=== PATIENT | female | born 1945 | race Caucasian/White ===

== ENCOUNTER 2018-02-01 20:42 | Emergency (ER) | payer MEDICARE, OTHER ==
[~2018-02-01] VITALS: Ht 157.5 cm; Wt 77.2 kg
[~2018-02-01 20:42] MED LIST: ALPRAZOLAM0.5 MG PO; ASA81 MG PO; CEFUROXIME500 MG PO; DOXEPIN PO; DOXYCYCLINE HY100 MG PO; FLUTICASONE PRO16 GM NS; HYDROCODONE PO; K-DUR20 ME1 PO; LANTUS100 UNITS/ SC; LEVAQUIN500 MG PO; MUCINEX DM ER1 EAC1 PO; NORCO 5-325 TA1 EACH PO; NOVOLOG MI100 UNITS/ SC; PREDNISONE20 MG PO; PREDNISONE5 MG PO; PROCARDIA10 MG PO; SYMBICORT 80-46.9 GM INH; TALWIN NX; TRAZODONE HCL50 MG PO; ULTRAM50 MG PO; VENTOLIN HFA18 GM INH; Z.0.ALDACTONE25 MG; Z.0.AMBIEN10 MG; Z.0.JANUVIA100 MG; Z.0.K DUR10 MEQ; Z.0.LASIX40 MG PO; Z.0.LASIX80 MG PO; Z.0.NIFEDICAL XL30 M; Z.0.PRILOSEC20 MG PO; Z.0.TENORMIN25 MG PO; Z.0.TIROSINT75 MCG PO; Z.0.TRIAMTERENE-HC1; Z.0.ZOCOR20 MG PO
[2018-02-01] MEDS ORDERED: HYDROCODONE/APAP 5MG-325MG TAB PO ONE (21:15)
[2018-02-01 22:29] VITALS: BP 168/85
== END 2018-02-01 22:17 | disposition home or self-care (01) ==
LOC: FSED 20:42
DX: S90.122A Contusion of left lesser toe(s) without damage to nail, initial encounter (principal); W22.8XXA Striking against or struck by other objects, initial encounter; Y92.008 Other place in unspecified non-institutional (private) residence as the place of occurrence of the external cause; I10 Essential (primary) hypertension; E11.9 Type 2 diabetes mellitus without complications
CPT/HCPCS: 99283

== ENCOUNTER 2019-05-08 14:54 | Emergency (ER) | payer MEDICARE ==
[~2019-05-08] VITALS: Ht 157.5 cm; Wt 79.4 kg
--- OUTSIDE RECORDS SUMMARY | 2019-05-08 14:58 | XMS REPORT | Summary of Care ---
Author Author [facility] [place] Organization [facility] [place] Address Unknown Phone Unavailable Encounter HQ Tamia(FIN) [id number] Date(s): 01/18/17 - 01/18/17 [facility] [place] [address] [place] [phone] Discharge Disposition: Home or Self Care Attending Physician: Braden James MD Vital Signs No data available for this section Problem List Condition Effective Dates Status Health Status Informant Acute Active gastritis(Confirmed) 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) Diverticulitis(Confi Resolved rmed) DM (diabetes Active mellitus)(Confirmed) Heart Resolved attack(Confirmed) Hypothyroid(Confirme Resolved d) Mitral valve Resolved observation(Confirme d) Allergies, Adverse Reactions, Alerts Substance Reaction Severity Status NKDA Active Medications No data available for this section Results No data available for this section Immunizations No data available for this section Procedures Procedure Date Related Diagnosis Body Site Abdominal hysterectomy1 Cholecystectomy2 Colonoscopy Esophagogastroduodenoscopy3 Excision of lymph node [id number] 3recently and several in the past Social History Social History Type Response Alcohol Past, Frequency: 1-2 times per year. Previous treatment: None. Alcohol use interferes with work or home: No. Smoking Status Former smoker; Type: Cigarettes; Started at age: 38.0; Exposure to Tobacco Smoke None; Cigarette Smoking Last 365 Days No; Reg Smoking Cessation Counseling No Assessment and Plan No data available for this section
--- OUTSIDE RECORDS SUMMARY | 2019-05-08 14:58 | XMS REPORT | Continuity of Care Document ---
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 Problem 01/21/2017 [facility] [place] Diverticulitis (disorder) Resolved Problem 01/21/2017 [facility] [place] Diabetes mellitus (disorder) Active Problem 01/21/2017 [facility] [place] Myocardial infarction (disorder) Resolved Problem 01/21/2017 [facility] [place] Hypothyroidism (disorder) Resolved Problem 01/21/2017 [facility] [place] Mitral valve finding (finding) Resolved Problem 01/21/2017 [facility] [place] Medications No Data Provided for This Section Allergies, Adverse Reactions, Alerts No Known Medication Allergies Immunizations No Data Provided for This Section Results No Data Provided for This Section Pathology Reports No Data Provided for This Section Diagnostic Reports Report Value Date Source Knee wo contrast MRI EXAMINATION: MRI of the left knee without contrast. HISTORY: - S83.242A Other tear of medial meniscus, current injury, left knee, initial encounter; AGE: 71 years GENDER: Female COMPARISON: There are no radiographs available for review. TECHNIQUE: Multiplanar, multisequence magnetic resonance imaging of the left knee is performed with an extremity coil without contrast. FINDINGS: Menisci: Medial: Myxoid degeneration in the posterior horn of the medial meniscus without discrete articular surface contact to suggest tear. Lateral: The anterior horn, body, and posterior horn are intact. Ligaments: The anterior cruciate ligament and posterior cruciate ligament are intact. The medial collateral ligament and lateral collateral ligament complex are intact. Extensor mechanism: The extensor mechanism is intact. Muscles: There is normal signal intensity and muscle bulk of the musculature at the knee. Cartilage: Moderate reactive marrow changes seen in the patellar apex and medial patellar facet. 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 The medial tibiofemoral articular cartilage is intact.. The lateral tibiofemoral articular cartilage is intact.. Bone: There are no acute fractures. There are no suspicious bone marrow replacing lesions. Soft tissues: There is a trace knee joint effusion. There is a trace Winter's cyst IMPRESSION: 1. 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 2. Trace knee joint effusion and Winter's cyst. 01/18/2017 [facility] Knee wo contrast MRI EXAMINATION: MRI of the right knee without contrast. HISTORY: - S83.241A Other tear of medial meniscus, current injury, right knee, initial encounter; AGE: 71 years GENDER: Female COMPARISON: There are no radiographs available for review. TECHNIQUE: Multiplanar, multisequence magnetic resonance imaging of the right knee is performed with an extremity coil without contrast. FINDINGS: Menisci: Medial: Myxoid degeneration the posterior horn of the medial meniscus without articular surface contact to suggest tear. Moderate free edge blunting is noted in the body of the medial meniscus. Lateral: The anterior horn, body, and posterior horn are intact. Ligaments: The anterior cruciate ligament and posterior cruciate ligament are intact. The medial collateral ligament and lateral collateral ligament complex are intact. Extensor mechanism: The extensor mechanism is intact. Muscles: There is normal signal intensity and muscle bulk of the musculature at the knee. Cartilage: Moderate reactive marrow change in the patellar apex and medial patellar facet. Minimal reactive marrow changes seen in the marginal weightbearing medial tibiofemoral compartment. 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 The medial tibiofemoral articular cartilage demonstrates grade 3 chondromalacia with chondral surface irregularity.. The lateral tibiofemoral articular cartilage is intact.. Bone: There are no acute fractures. There are no suspicious bone marrow replacing lesions. Soft tissues: There is no significant knee joint effusion. There is no Winter's cyst. IMPRESSION: 1. 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 2. 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 3. Moderate free edge blunting and myxoid degeneration of the medial meniscus without discrete MR evidence of tear. 01/18/2017 [facility] [place] Consultation Notes No Data Provided for This Section Discharge Summaries No Data Provided for This Section History and Physicals No Data Provided for This Section Vital Signs No Data Provided for This Section Encounters Location Location Details Encounter Type Encounter Number Reason For Visit Attending Provider ADM Date DC Date Status Source [facility] [place] Outpt Diag Services [id number] Braden James 01/18/2017 01/19/2017 [facility] [place] Procedures Procedure Code Date Perfomer Comments Source Abdominal hysterectomy<sup>1</sup> [id number] 1966 [facility] [place] Cholecystectomy<sup>2</sup> [id number] 1974 [facility] [place] Colonoscopy [id number] [facility] [place] Esophagogastroduodenoscopy<sup>3</sup> [id number] recently and several in the past [facility] [place] Excision of lymph node [id number] [facility] [place] Assessment and Plan No Data Provided for This Section Plan of Care No Data Provided for This Section Social History Social History Date Source Social History TypeResponse Alcohol Past, Frequency: 1-2 times per year. Previous treatment: None. Alcohol use interferes with work or home: No. Smoking Status Former smoker; Type: Cigarettes; Started at age: 38.0; Exposure to Tobacco Smoke None; Cigarette Smoking Last 365 Days No; Reg Smoking Cessation Counseling No 01/20/2015 [facility] [place] Family History No Data Provided for This Section Advance Directives No Data Provided for This Section Functional Status No Data Provided for This Section
[2019-05-08] MEDS ORDERED: KETOROLAC TROMETHAMINE 30 MG/ML VIAL IM ONE (15:15)
[2019-05-08] MEDS ORDERED: KETOROLAC TROMETHAMINE 30 MG/ML VIAL ONE (15:38)
--- NOTE | 2019-05-08 15:56 | Diagnostic Imaging Report ---
EXAMINATION: L SPINE 4 OR MORE VIEWS - [facility], PELVIS 1-2 VIEW - [facility] INDICATION: Back pain, trauma COMPARISON: None FINDINGS: AP, lateral and oblique views of the lumbar spine and AP view of the pelvis were obtained. Lumbar spine: No acute fracture. Vertebral body heights are maintained. Alignment is normal. No substantial degenerative change. Atherosclerotic aortic calcifications. Nonobstructive bowel gas pattern. Pelvis: No acute fracture or dislocation. Alignment appears anatomic. IMPRESSION: No acute osseous injury. Signed by: Dami Bray MD on 05/08/2019 3:52 PM
[2019-05-08 17:33] VITALS: BP 156/74
== END 2019-05-08 17:05 | disposition home or self-care (01) ==
LOC: FSED 14:54
DX: M54.5 Low back pain (principal); S33.5XXA Sprain of ligaments of lumbar spine, initial encounter
CPT/HCPCS: 72110; 72170; 96372; 99283; J1885

== ENCOUNTER 2020-11-05 07:45 | Inpatient (IN) | payer MEDICARE ==
[~2020-11-05] VITALS: Ht 157.5 cm; Wt 74.9 kg
[2020-11-05] MEDS ORDERED: ASPIRIN 81 MG CHEW TAB PO ONE (08:00)
[2020-11-05 08:23] LABS: BASOPHILS % 0.5 % (0.0-1.0); EOSINOPHILS # (AUTO) 0.2 (0.0-0.4); HEMATOCRIT 23.8 % (34.2-44.1); HEMOGLOBIN 8.1 g/dL (12.0-16.0); LYMPHOCYTES # (AUTO) 0.8 (1.0-3.2); LYMPHOCYTES % 11.2 % (18.0-39.1); MEAN CORPUSCULAR HEMOGLOBIN 37.7 pg (28-32); MEAN CORPUSCULAR VOLUME 110.7 fL (81-99); MONOCYTES # (AUTO) 0.5 (0.2-0.8); MONOCYTES % 7.1 % (4.4-11.3); NEUTROPHILS # (AUTO) 5.7 (2.1-6.9); NEUTROPHILS % 77.5 % (38.7-80.0); PLATELET COUNT 175 x10e3/uL (140-360); RED BLOOD COUNT 2.15 x10e6/uL (3.6-5.1); RED CELL DISTRIBUTION WIDTH 13.8 % (11.7-14.4)
[2020-11-05 08:38] LABS: ALANINE AMINOTRANSFERASE 9 IU/L (0-55); ALBUMIN 3.9 g/dL (3.5-5.0); ALBUMIN/GLOBULIN RATIO 1.3 (0.8-2.0); ALKALINE PHOSPHATASE 50 IU/L (40-150); ANION GAP 14.2 mmol/L (8-16); BLOOD UREA NITROGEN 14 mg/dL (7-26); BUN/CREATININE RATIO 17 (6-25); CALCIUM 8.7 mg/dL (8.4-10.2); CARBON DIOXIDE 21 mmol/L (22-29); CHLORIDE 107 mmol/L (98-107); CREATINE KINASE 27 IU/L (29-168); CREATININE, SERUM 0.81 mg/dL (0.57-1.11); EST GLOMERULAR FILTRATION RATE > 60 ML/MIN (60-); GLUCOSE 217 mg/dL (74-118); POTASSIUM 4.2 mmol/L (3.5-5.1); SODIUM 138 mmol/L (136-145)
[2020-11-05] MEDS ORDERED: FUROSEMIDE INJ 10 MG/ML 4 ML VIAL IV NR (08:45)
[2020-11-05] MEDS ORDERED: FUROSEMIDE INJ 10 MG/ML 4 ML VIAL IV SCH (09:00)
[2020-11-05 09:50] LABS: OVALOCYTES FEW; PLATELET ESTIMATE ADEQUATE; PLATELET MORPHOLOGY COMMENT NORMAL; RBC MORPHOLOGY COMMENT ABNORMAL
[2020-11-05] MEDS ORDERED: LISINOPRIL 10 MG TAB PO SCH (11:30)
[2020-11-05] MEDS ORDERED: FLUTICASONE PROPIONATE NASAL SPRAY NS PRN (11:30)
[2020-11-05] MEDS ORDERED: HYDRALAZINE HCL 20 MG/ML VIAL IV PRN (11:30)
[2020-11-05] MEDS: INSULIN LISPRO 100 UNIT/1 ML 3ML VIAL SQ SCH ×3 (12:30→20:25)
[2020-11-05 12:42] VITALS: BP 174/51
[2020-11-05 12:49] VITALS: BP 174/51
[2020-11-05 16:00] LABS: CREATINE KINASE 33 IU/L (29-168)
[2020-11-05 16:45] VITALS: BP 182/47
[2020-11-05] MEDS: BUDESONIDE/FORMOTEROL FUMARATE 80/4.5MCG 6.9 GM INH AEROSOL IH SCH ×2 (17:00→19:00)
[2020-11-05 17:30] VITALS: BP 160/54
[2020-11-05 20:00] VITALS: BP 163/44
[2020-11-05 20:15] VITALS: BP 163/44
[2020-11-05] MEDS: TRAZODONE HCL 50 MG TAB PO SCH (20:31)
[2020-11-05 22:29] LABS: CLARITY,URINE CLEAR (CLEAR); COLOR,URINE YELLOW (YELLOW); KETONES,URINE NEGATIVE (NEGATIVE); LEUKOCYTE ESTERASE ,URINE TRACE (NEGATIVE); NITRITE,URINE NEGATIVE (NEGATIVE); PROTEIN,URINE DIPSTICK 2+ (NEGATIVE); URINE UROBILINOGEN 0.2 mg/dL (0.2 - 1)
[2020-11-05 22:42] LABS: BACTERIA,URINE FEW /HPF; EPITHELIAL CELLS,URINE FEW /LPF; RBC,URINE 0-5 /HPF (0-5)
[2020-11-05] MEDS: LISINOPRIL 10 MG TAB PO SCH (23:58)
[2020-11-06] VITALS: BP 160/46
[2020-11-06] MEDS: ONDANSETRON HCL INJ 2MG/ML 2ML 2 MG/ML VIAL IV PRN (03:27)
[2020-11-06 05:59] LABS: BASOPHILS % 0.5 % (0.0-1.0); EOSINOPHILS # (AUTO) 0.1 (0.0-0.4); EOSINOPHILS % 2.3 % (0.0-6.0); LYMPHOCYTES # (AUTO) 0.9 (1.0-3.2); LYMPHOCYTES % 15.1 % (18.0-39.1); MEAN CORPUSCULAR HEMOGLOBIN 37.5 pg (28-32); MEAN CORPUSCULAR HGB CONC 34.2 g/dL (31-35); MEAN CORPUSCULAR VOLUME 109.8 fL (81-99); MONOCYTES # (AUTO) 0.5 (0.2-0.8); NEUTROPHILS # (AUTO) 4.1 (2.1-6.9); NEUTROPHILS % 72.7 % (38.7-80.0); PLATELET COUNT 134 x10e3/uL (140-360); RED BLOOD COUNT 1.84 x10e6/uL (3.6-5.1); RED CELL DISTRIBUTION WIDTH 13.6 % (11.7-14.4)
[2020-11-06] MEDS: LEVOTHYROXINE SODIUM 75 MCG TAB PO SCH (06:00)
[2020-11-06 06:02] LABS: HEMATOCRIT 20.2 % (34.2-44.1); HEMOGLOBIN 6.9 g/dL (12.0-16.0)
[2020-11-06 06:05] LABS: ANION GAP 11.7 mmol/L (8-16); BLOOD UREA NITROGEN 12 mg/dL (7-26); BUN/CREATININE RATIO 16 (6-25); CALCIUM 8.3 mg/dL (8.4-10.2); CARBON DIOXIDE 26 mmol/L (22-29); CHLORIDE 106 mmol/L (98-107); CREATININE, SERUM 0.77 mg/dL (0.57-1.11); EST GLOMERULAR FILTRATION RATE > 60 ML/MIN (60-); GLUCOSE 166 mg/dL (74-118); POTASSIUM 3.7 mmol/L (3.5-5.1); SODIUM 140 mmol/L (136-145)
[2020-11-06] MEDS ORDERED: SODIUM CHLORIDE 0.9% 250ML 250 ML IV ONE (06:15)
[2020-11-06] MEDS: BUDESONIDE/FORMOTEROL FUMARATE 80/4.5MCG 6.9 GM INH AEROSOL IH SCH ×2 (07:00→19:45)
[2020-11-06] MEDS: INSULIN LISPRO 100 UNIT/1 ML 3ML VIAL SQ SCH ×4 (07:30→21:21)
[2020-11-06 07:54] VITALS: BP 160/46
[2020-11-06 08:23] VITALS: BP 191/51
[2020-11-06] MEDS ORDERED: NON-FORMULARY MEDICATION (Levothyroxine Sodium (Tirosint) 75 MCG) PO SCH (09:00)
[2020-11-06] MEDS: LISINOPRIL 10 MG TAB PO SCH ×2 (09:52→20:30)
[2020-11-06] MEDS ORDERED: IOPAMIDOL 370 MG/ML 200 ML INFUS..BTL INJ ONE (10:10)
[2020-11-06] MEDS ORDERED: SODIUM CHLORIDE 0.9% 50ML 50 ML ONE (10:10)
[2020-11-06] MEDS ORDERED: CEFTRIAXONE SOD 1 GM/50 ML BAG IV SCH (10:15)
[2020-11-06 11:44] VITALS: BP 182/56
[2020-11-06] MEDS: NIFEDIPINE CR 30 MG TAB PO SCH (12:10)
[2020-11-06] MEDS: AZITHROMYCIN 250 MG TAB PO SCH (12:11)
[2020-11-06] MEDS: CEFTRIAXONE SOD 1 GM in SODIUM CHLORIDE 0.9% 50ML 50 ML IV SCH (12:13)
[2020-11-06 12:24] LABS: ANISOCYTOSIS SLIGHT; PLATELET ESTIMATE SLIGHTLY DECREASED; POIKILOCYTOSIS SLIGHT; RBC MORPHOLOGY COMMENT ABNORMAL
[2020-11-06] MEDS ORDERED: SODIUM CHLORIDE 0.9% 250ML 250 ML ONE ×2 (12:24→13:24)
[2020-11-06 12:25] LABS: PLATELET MORPHOLOGY COMMENT NORMAL
[2020-11-06] MEDS ORDERED: METOPROLOL TART50 MG PO (13:13)
[2020-11-06 13:31] LABS: HYPOCHROMASIA SLIGHT
[2020-11-06] MEDS ORDERED: FUROSEMIDE INJ 10 MG/ML 2 ML VIAL IV ONE ×2 (15:00→19:45)
[2020-11-06] MEDS: METOPROLOL TARTRATE 50 MG TAB PO SCH (19:38)
[2020-11-06] MEDS: ACETAMINOPHEN 325 MG TAB PO PRN (19:47)
[2020-11-06 20:00] VITALS: BP 137/49
[2020-11-06] MEDS: TRAZODONE HCL 50 MG TAB PO SCH (20:30)
[2020-11-06] MEDS: SIMVASTATIN 20 MG TAB PO SCH (20:31)
[2020-11-06] MEDS ORDERED: SIMVASTATIN 20 MG TAB PO SCH (21:00)
[2020-11-07] VITALS (8 sets, daily range): BP systolic 116–156; BP diastolic 48–56
[2020-11-07] MEDS: LEVOTHYROXINE SODIUM 75 MCG TAB PO SCH (05:05)
[2020-11-07 06:25] LABS: BASOPHILS # (AUTO) 0.1 (0.0-0.1); BASOPHILS % 0.8 % (0.0-1.0); EOSINOPHILS # (AUTO) 0.5 (0.0-0.4); EOSINOPHILS % 7.5 % (0.0-6.0); HEMATOCRIT 24.1 % (34.2-44.1); HEMOGLOBIN 8.2 g/dL (12.0-16.0); LYMPHOCYTES # (AUTO) 0.8 (1.0-3.2); LYMPHOCYTES % 13.1 % (18.0-39.1); MEAN CORPUSCULAR HEMOGLOBIN 36.8 pg (28-32); MEAN CORPUSCULAR VOLUME 108.1 fL (81-99); MONOCYTES # (AUTO) 0.6 (0.2-0.8); MONOCYTES % 9.4 % (4.4-11.3); NEUTROPHILS # (AUTO) 4.4 (2.1-6.9); NEUTROPHILS % 68.6 % (38.7-80.0); PLATELET COUNT 150 x10e3/uL (140-360); RED BLOOD COUNT 2.23 x10e6/uL (3.6-5.1); RED CELL DISTRIBUTION WIDTH 16.9 % (11.7-14.4)
[2020-11-07 06:48] LABS: ANION GAP 13.5 mmol/L (8-16); CALCIUM 8.1 mg/dL (8.4-10.2); CREATININE, SERUM 0.96 mg/dL (0.57-1.11); POTASSIUM 3.5 mmol/L (3.5-5.1)
[2020-11-07] MEDS: BUDESONIDE/FORMOTEROL FUMARATE 80/4.5MCG 6.9 GM INH AEROSOL IH SCH ×2 (07:10→20:36)
[2020-11-07] MEDS: METOPROLOL TARTRATE 50 MG TAB PO SCH ×2 (09:25→17:44)
[2020-11-07] MEDS: LISINOPRIL 10 MG TAB PO SCH ×2 (09:25→21:00)
[2020-11-07] MEDS: AZITHROMYCIN 250 MG TAB PO SCH (09:26)
[2020-11-07] MEDS: NIFEDIPINE CR 30 MG TAB PO SCH (09:26)
[2020-11-07] MEDS: INSULIN LISPRO 100 UNIT/1 ML 3ML VIAL SQ SCH ×4 (09:28→21:00)
[2020-11-07] MEDS ORDERED: FUROSEMIDE INJ 10 MG/ML 4 ML VIAL IV ONE (10:30)
[2020-11-07] MEDS ORDERED: METOLAZONE 5 MG TAB PO ONE (10:30)
[2020-11-07] MEDS: CEFTRIAXONE SOD 1 GM in SODIUM CHLORIDE 0.9% 50ML 50 ML IV SCH (12:30)
[2020-11-07] MEDS: CHOLESTYRAMINE 4 GM PACKET PO SCH (12:32)
[2020-11-07] MEDS: ACETAMINOPHEN 325 MG TAB PO PRN (12:33)
[2020-11-07] MEDS: TRAZODONE HCL 50 MG TAB PO SCH (21:57)
[2020-11-07] MEDS: SIMVASTATIN 20 MG TAB PO SCH (21:58)
[2020-11-08 01:33] VITALS: BP 103/39
[2020-11-08 05:25] VITALS: BP 151/52
[2020-11-08 05:38] LABS: BASOPHILS # (AUTO) 0.1 (0.0-0.1); BASOPHILS % 0.9 % (0.0-1.0); EOSINOPHILS # (AUTO) 0.5 (0.0-0.4); EOSINOPHILS % 7.7 % (0.0-6.0); HEMATOCRIT 24.7 % (34.2-44.1); HEMOGLOBIN 8.7 g/dL (12.0-16.0); LYMPHOCYTES # (AUTO) 1.3 (1.0-3.2); LYMPHOCYTES % 18.1 % (18.0-39.1); MEAN CORPUSCULAR HEMOGLOBIN 37.7 pg (28-32); MEAN CORPUSCULAR HGB CONC 35.2 g/dL (31-35); MEAN CORPUSCULAR VOLUME 106.9 fL (81-99); MONOCYTES # (AUTO) 0.6 (0.2-0.8); MONOCYTES % 9.1 % (4.4-11.3); NEUTROPHILS # (AUTO) 4.5 (2.1-6.9); NEUTROPHILS % 63.6 % (38.7-80.0); PLATELET COUNT 155 x10e3/uL (140-360); RED BLOOD COUNT 2.31 x10e6/uL (3.6-5.1); RED CELL DISTRIBUTION WIDTH 16.7 % (11.7-14.4)
[2020-11-08] MEDS: LEVOTHYROXINE SODIUM 75 MCG TAB PO SCH (05:51)
[2020-11-08 06:12] LABS: ALBUMIN 3.5 g/dL (3.5-5.0); ALBUMIN/GLOBULIN RATIO 1.3 (0.8-2.0); ANION GAP 15.6 mmol/L (8-16); CALCIUM 8.1 mg/dL (8.4-10.2); CREATININE, SERUM 0.98 mg/dL (0.57-1.11); POTASSIUM 3.6 mmol/L (3.5-5.1)
[2020-11-08] MEDS: BUDESONIDE/FORMOTEROL FUMARATE 80/4.5MCG 6.9 GM INH AEROSOL IH SCH (07:00)
[2020-11-08] MEDS: INSULIN LISPRO 100 UNIT/1 ML 3ML VIAL SQ SCH ×3 (07:30→15:53)
[2020-11-08 07:42] VITALS: BP 162/60
[2020-11-08 08:41] VITALS: BP 162/60
[2020-11-08] MEDS: LISINOPRIL 10 MG TAB PO SCH (09:00)
[2020-11-08] MEDS: AZITHROMYCIN 250 MG TAB PO SCH (09:00)
[2020-11-08] MEDS: NIFEDIPINE CR 30 MG TAB PO SCH (09:00)
[2020-11-08] MEDS: METOPROLOL TARTRATE 50 MG TAB PO SCH ×2 (09:00→15:53)
[2020-11-08] MEDS: CHOLESTYRAMINE 4 GM PACKET PO SCH (09:00)
[2020-11-08] MEDS: ONDANSETRON HCL INJ 2MG/ML 2ML 2 MG/ML VIAL IV PRN (09:40)
[2020-11-08] MEDS: CEFTRIAXONE SOD 1 GM in SODIUM CHLORIDE 0.9% 50ML 50 ML IV SCH (11:00)
[2020-11-08] MEDS ORDERED: MAGNESIUM SULFATE 2GM/50ML 50 ML IV ONE (11:15)
[2020-11-08 11:33] VITALS: BP 151/50
[2020-11-08] MEDS ORDERED: FUROSEMIDE40 MG PO (15:13)
[2020-11-08 15:44] VITALS: BP 148/60
[2020-11-08] MEDS ORDERED: ONDANSETRON HCL 4 MG ORAL DISINTEGRATING TAB PO PRN (15:45)
[2020-11-09] MEDS ORDERED: FUROSEMIDE 40 MG TAB PO SCH (09:00)
== END 2020-11-08 15:55 | disposition home or self-care (01) | DRG 292 ==
LOC: ER 07:49 → ERHOLD 08:57 → MED/SURG2 11:29 → OBSVTOIN 11-06 12:55 → INTOOBSV 11-06 12:55
PROVIDERS: ADMIT Internal Medicine; ATTEND Internal Medicine
PROC: 30233N1 Transfusion of Nonautologous Red Blood Cells into Peripheral Vein, Percutaneous Approach (ICD-10-PCS; principal; 2020-11-06)
DX: I11.0 Hypertensive heart disease with heart failure (principal); C94.6 Myelodysplastic disease, not elsewhere classified; I16.9 Hypertensive crisis, unspecified; R06.03 Acute respiratory distress; I50.33 Acute on chronic diastolic (congestive) heart failure; I27.20 Pulmonary hypertension, unspecified; E11.9 Type 2 diabetes mellitus without complications; D50.0 Iron deficiency anemia secondary to blood loss (chronic); E78.00 Pure hypercholesterolemia, unspecified; E03.9 Hypothyroidism, unspecified; J44.9 Chronic obstructive pulmonary disease, unspecified; J47.9 Bronchiectasis, uncomplicated; Z87.891 Personal history of nicotine dependence
CPT/HCPCS: 36415; 71045; 71260; 74018; 80048; 80053; 81001; 82550; 82553; 82607; 82746; 82948; 83735; 83880; 84443; 84484; 85025; 86850; 86900; 86920; 93005; 93306; 94664; 99284; G0378; J0360; J0696; J1940; J2405; J3475; J7050; P9016; Q9967; U0002

== ENCOUNTER 2021-08-09 21:45 | Inpatient (IN) | payer MEDICARE ==
[~2021-08-09] VITALS: Ht 157.5 cm; Wt 74.8 kg
[~2021-08-09 21:45] MED LIST changes: +FUROSEMIDE40 MG PO; +METOPROLOL TART50 MG PO
[2021-08-09] MEDS ORDERED: FUROSEMIDE INJ 10 MG/ML 4 ML VIAL IV ONE (22:00)
[2021-08-10 00:31] LABS: ALBUMIN 3.5 g/dL (3.5-5.0); ALBUMIN/GLOBULIN RATIO 1.6 (0.8-2.0); ANION GAP 14.6 mmol/L (8-16); CALCIUM 8.4 mg/dL (8.4-10.2); CREATININE, SERUM 0.9 mg/dL (0.57-1.11); POTASSIUM 3.6 mmol/L (3.5-5.1)
[2021-08-10 01:00] LABS: BASOPHILS % 0.5 % (0.0-1.0); EOSINOPHILS # (AUTO) 0.2 (0.0-0.4); EOSINOPHILS % 2.2 % (0.0-6.0); LYMPHOCYTES # (AUTO) 1.1 (1.0-3.2); LYMPHOCYTES % 15.4 % (18.0-39.1); MEAN CORPUSCULAR HEMOGLOBIN 38.4 pg (28-32); MEAN CORPUSCULAR HGB CONC 33.3 g/dL (31-35); MEAN CORPUSCULAR VOLUME 115.3 fL (81-99); MONOCYTES # (AUTO) 0.6 (0.2-0.8); MONOCYTES % 8.2 % (4.4-11.3); NEUTROPHILS # (AUTO) 5.4 (2.1-6.9); PLATELET COUNT 149 x10e3/uL (140-360); RED BLOOD COUNT 1.77 x10e6/uL (3.6-5.1); RED CELL DISTRIBUTION WIDTH 14.6 % (11.7-14.4)
[2021-08-10 01:02] LABS: HEMATOCRIT 20.4 % (34.2-44.1); HEMOGLOBIN 6.8 g/dL (12.0-16.0)
[2021-08-10] MEDS ORDERED: SODIUM CHLORIDE 0.9% 250ML 250 ML IV ONE (01:15)
[2021-08-10 02:51] LABS: CLARITY,URINE SL CLOUDY (CLEAR); COLOR,URINE YELLOW (YELLOW); KETONES,URINE NEGATIVE (NEGATIVE); LEUKOCYTE ESTERASE ,URINE TRACE (NEGATIVE); NITRITE,URINE NEGATIVE (NEGATIVE); PROTEIN,URINE DIPSTICK NEGATIVE (NEGATIVE); URINE UROBILINOGEN 0.2 mg/dL (0.2 - 1)
[2021-08-10 02:57] LABS: BACTERIA,URINE FEW /HPF; EPITHELIAL CELLS,URINE FEW /LPF; RBC,URINE 0-5 /HPF (0-5)
[2021-08-10] MEDS ORDERED: SODIUM CHLORIDE 0.9% 250ML 250 ML ONE (04:18)
[2021-08-10] MEDS ORDERED: FLUTICASONE PROPIONATE NASAL SPRAY NS PRN (12:45)
[2021-08-10] MEDS ORDERED: DEXTROSE 50% SYRINGE 50 ML IV PRN (12:45)
[2021-08-10] MEDS ORDERED: ONDANSETRON HCL INJ 2MG/ML 2ML 2 MG/ML VIAL IV PRN (12:45)
[2021-08-10] MEDS: FUROSEMIDE INJ 10 MG/ML 4 ML VIAL IV SCH ×2 (14:02→22:11)
[2021-08-10] MEDS: ACETAMINOPHEN 325 MG TAB PO PRN (14:15)
[2021-08-10] MEDS: INSULIN REGULAR, HUMAN 100 UNIT/1 ML SQ SCH ×2 (16:38→21:00)
[2021-08-10] MEDS: METOPROLOL TARTRATE 50 MG TAB PO SCH (16:55)
[2021-08-10] MEDS ORDERED: BASAGLAR K100 UNIT/1 SC (18:47)
[2021-08-10] MEDS ORDERED: CYMBALTA20 MG PO (18:47)
[2021-08-10] MEDS ORDERED: LISINOPRIL20 MG PO (18:47)
[2021-08-10] MEDS ORDERED: NOVOLOG100 UNIT/1 SC ×3 (18:47)
[2021-08-10] MEDS ORDERED: LORATADINE10 MG PO (18:47)
[2021-08-10] MEDS ORDERED: TYLENOL325 MG PO (18:47)
[2021-08-10] MEDS ORDERED: NIFEDIPINE ER30 M1 PO (18:47)
[2021-08-10] MEDS ORDERED: QUESTRAN PACKET4 GM PO (18:47)
[2021-08-10] MEDS ORDERED: PROAIR HFA INH8.5 GM INH (18:47)
[2021-08-10] MEDS ORDERED: OMEPRAZOLE40 MG PO (18:47)
[2021-08-10] MEDS: BUDESONIDE/FORMOTEROL FUMARATE 80/4.5MCG 6.9 GM INH AEROSOL IH SCH (19:00)
[2021-08-10] MEDS: ALBUTEROL/IPRATROPIUM 3 ML NEB NEB SCH (19:55)
[2021-08-10 20:00] VITALS: BP 204/62
[2021-08-10] MEDS: SILENOR 6 MG PO SCH (21:00)
[2021-08-10 22:00] VITALS: BP 165/50
[2021-08-10] MEDS: TRAZODONE HCL 50 MG TAB PO SCH (22:11)
[2021-08-11] VITALS (8 sets, daily range): BP systolic 149–193; BP diastolic 43–56
[2021-08-11] MEDS: ALBUTEROL/IPRATROPIUM 3 ML NEB NEB SCH ×8 (04:05→23:20)
[2021-08-11] MEDS: LEVOTHYROXINE SODIUM 75 MCG TAB PO SCH (05:55)
[2021-08-11 06:17] LABS: BASOPHILS % 0.7 % (0.0-1.0); EOSINOPHILS # (AUTO) 0.2 (0.0-0.4); EOSINOPHILS % 4.1 % (0.0-6.0); HEMATOCRIT 28.6 % (34.2-44.1); HEMOGLOBIN 9.2 g/dL (12.0-16.0); LYMPHOCYTES % 18.8 % (18.0-39.1); MEAN CORPUSCULAR HEMOGLOBIN 34.6 pg (28-32); MEAN CORPUSCULAR HGB CONC 32.2 g/dL (31-35); MEAN CORPUSCULAR VOLUME 107.5 fL (81-99); MONOCYTES # (AUTO) 0.5 (0.2-0.8); MONOCYTES % 8.9 % (4.4-11.3); NEUTROPHILS # (AUTO) 3.6 (2.1-6.9); NEUTROPHILS % 67.1 % (38.7-80.0); PLATELET COUNT 114 x10e3/uL (140-360); RED BLOOD COUNT 2.66 x10e6/uL (3.6-5.1); RED CELL DISTRIBUTION WIDTH 22.2 % (11.7-14.4)
[2021-08-11 06:50] LABS: ANION GAP 16.3 mmol/L (8-16); CALCIUM 8.5 mg/dL (8.4-10.2); CREATININE, SERUM 0.92 mg/dL (0.57-1.11); POTASSIUM 3.3 mmol/L (3.5-5.1)
[2021-08-11] MEDS: BUDESONIDE/FORMOTEROL FUMARATE 80/4.5MCG 6.9 GM INH AEROSOL IH SCH ×3 (07:00→19:50)
[2021-08-11] MEDS: INSULIN REGULAR, HUMAN 100 UNIT/1 ML SQ SCH ×4 (08:37→20:53)
[2021-08-11] MEDS: FUROSEMIDE INJ 10 MG/ML 4 ML VIAL IV SCH ×2 (08:37→20:57)
[2021-08-11] MEDS: METOPROLOL TARTRATE 50 MG TAB PO SCH ×2 (08:39→18:06)
[2021-08-11] MEDS ORDERED: NIFEDIPINE 10 MG CAP PO SCH (09:00)
[2021-08-11] MEDS ORDERED: POTASSIUM CHLORIDE 20 MEQ TAB CR PO ONE (11:15)
[2021-08-11] MEDS: NIFEDIPINE 10 MG CAP PO SCH ×2 (14:48→20:51)
[2021-08-11] MEDS: ACETAMINOPHEN 325 MG TAB PO PRN (19:28)
[2021-08-11] MEDS: SIMVASTATIN 20 MG TAB PO SCH (20:57)
[2021-08-11] MEDS: TRAZODONE HCL 50 MG TAB PO SCH (20:57)
[2021-08-11] MEDS: SILENOR 6 MG PO SCH (21:00)
[2021-08-12] VITALS (8 sets, daily range): BP systolic 137–186; BP diastolic 40–78
[2021-08-12] MEDS: ALBUTEROL/IPRATROPIUM 3 ML NEB NEB SCH ×6 (03:30→23:00)
[2021-08-12] MEDS: LEVOTHYROXINE SODIUM 75 MCG TAB PO SCH (04:56)
[2021-08-12 05:07] LABS: BASOPHILS % 0.6 % (0.0-1.0); EOSINOPHILS # (AUTO) 0.3 (0.0-0.4); EOSINOPHILS % 6.4 % (0.0-6.0); HEMATOCRIT 24.4 % (34.2-44.1); LYMPHOCYTES # (AUTO) 1.1 (1.0-3.2); LYMPHOCYTES % 21.5 % (18.0-39.1); MEAN CORPUSCULAR HEMOGLOBIN 34.6 pg (28-32); MEAN CORPUSCULAR HGB CONC 32.8 g/dL (31-35); MEAN CORPUSCULAR VOLUME 105.6 fL (81-99); MONOCYTES # (AUTO) 0.4 (0.2-0.8); MONOCYTES % 7.9 % (4.4-11.3); NEUTROPHILS # (AUTO) 3.3 (2.1-6.9); NEUTROPHILS % 63.2 % (38.7-80.0); PLATELET COUNT 112 x10e3/uL (140-360); RED BLOOD COUNT 2.31 x10e6/uL (3.6-5.1); RED CELL DISTRIBUTION WIDTH 21.2 % (11.7-14.4)
[2021-08-12 05:30] LABS: ANION GAP 14.1 mmol/L (8-16); CALCIUM 7.9 mg/dL (8.4-10.2); CREATININE, SERUM 0.98 mg/dL (0.57-1.11); MAGNESIUM 1.6 MG/DL (1.3-2.1); POTASSIUM 4.1 mmol/L (3.5-5.1)
[2021-08-12] MEDS: BUDESONIDE/FORMOTEROL FUMARATE 80/4.5MCG 6.9 GM INH AEROSOL IH SCH ×2 (07:15→18:45)
[2021-08-12] MEDS: INSULIN REGULAR, HUMAN 100 UNIT/1 ML SQ SCH ×4 (07:30→19:50)
[2021-08-12] MEDS: CLONIDINE HCL 0.1 MG TAB PO PRN ×2 (08:05→15:44)
[2021-08-12] MEDS: METOPROLOL TARTRATE 50 MG TAB PO SCH ×2 (09:00→16:34)
[2021-08-12] MEDS: NIFEDIPINE 10 MG CAP PO SCH (09:00)
[2021-08-12] MEDS: FUROSEMIDE INJ 10 MG/ML 4 ML VIAL IV SCH ×2 (09:10→19:59)
[2021-08-12] MEDS: NIFEDIPINE CR 30 MG TAB PO SCH (11:58)
[2021-08-12] MEDS ORDERED: ONDANSETRON HCL 4 MG ORAL DISINTEGRATING TAB PO PRN (17:30)
[2021-08-12] MEDS: TRAZODONE HCL 50 MG TAB PO SCH (19:59)
[2021-08-12] MEDS: SIMVASTATIN 20 MG TAB PO SCH (19:59)
[2021-08-12] MEDS: SILENOR 6 MG PO SCH (20:01)
[2021-08-13 00:20] VITALS: BP 152/49
[2021-08-13] MEDS: ALBUTEROL/IPRATROPIUM 3 ML NEB NEB SCH ×4 (03:00→15:18)
[2021-08-13 04:20] VITALS: BP 142/56
[2021-08-13] MEDS: LEVOTHYROXINE SODIUM 75 MCG TAB PO SCH (05:25)
[2021-08-13] MEDS: BUDESONIDE/FORMOTEROL FUMARATE 80/4.5MCG 6.9 GM INH AEROSOL IH SCH (07:15)
[2021-08-13 07:23] LABS: BASOPHILS % 0.4 % (0.0-1.0); EOSINOPHILS # (AUTO) 0.3 (0.0-0.4); EOSINOPHILS % 7.1 % (0.0-6.0); HEMOGLOBIN 8.3 g/dL (12.0-16.0); LYMPHOCYTES # (AUTO) 0.9 (1.0-3.2); LYMPHOCYTES % 18.7 % (18.0-39.1); MEAN CORPUSCULAR HEMOGLOBIN 34.9 pg (28-32); MEAN CORPUSCULAR HGB CONC 33.2 g/dL (31-35); MONOCYTES # (AUTO) 0.4 (0.2-0.8); MONOCYTES % 7.7 % (4.4-11.3); NEUTROPHILS # (AUTO) 3.2 (2.1-6.9); NEUTROPHILS % 65.9 % (38.7-80.0); PLATELET COUNT 118 x10e3/uL (140-360); RED BLOOD COUNT 2.38 x10e6/uL (3.6-5.1)
[2021-08-13] MEDS: INSULIN REGULAR, HUMAN 100 UNIT/1 ML SQ SCH ×2 (07:30→11:30)
[2021-08-13 07:39] VITALS: BP 144/51
[2021-08-13 07:42] LABS: ANION GAP 16.6 mmol/L (8-16); CALCIUM 8.5 mg/dL (8.4-10.2); CREATININE, SERUM 0.88 mg/dL (0.57-1.11); POTASSIUM 4.6 mmol/L (3.5-5.1)
[2021-08-13 08:03] VITALS: BP 144/51
[2021-08-13] MEDS ORDERED: FUROSEMIDE 40 MG TAB PO SCH (09:00)
[2021-08-13] MEDS: FUROSEMIDE INJ 10 MG/ML 4 ML VIAL IV SCH (09:35)
[2021-08-13] MEDS: METOPROLOL TARTRATE 50 MG TAB PO SCH (09:35)
[2021-08-13] MEDS: NIFEDIPINE CR 30 MG TAB PO SCH (09:36)
[2021-08-13] MEDS: ACETAMINOPHEN 325 MG TAB PO PRN ×2 (09:40→14:18)
[2021-08-13 11:32] VITALS: BP 135/47
[2021-08-13 15:46] VITALS: BP 138/48
[2021-08-14] MEDS ORDERED: FUROSEMIDE 40 MG TAB PO SCH (09:00)
== END 2021-08-13 17:15 | disposition home or self-care (01) | DRG 291 ==
LOC: ER 21:56 → ERHOLD 08-10 01:37 → MED/SURG2 08-10 18:20
PROVIDERS: ADMIT Internal Medicine; ATTEND Internal Medicine
PROC: 30233N1 Transfusion of Nonautologous Red Blood Cells into Peripheral Vein, Percutaneous Approach (ICD-10-PCS; principal; 2021-08-10)
DX: I13.0 Hypertensive heart and chronic kidney disease with heart failure and stage 1 through stage 4 chronic kidney disease, or unspecified chronic kidney disease (principal); I50.33 Acute on chronic diastolic (congestive) heart failure; J96.21 Acute and chronic respiratory failure with hypoxia; E03.9 Hypothyroidism, unspecified; E78.5 Hyperlipidemia, unspecified; E11.22 Type 2 diabetes mellitus with diabetic chronic kidney disease; N18.9 Chronic kidney disease, unspecified; Z82.49 Family history of ischemic heart disease and other diseases of the circulatory system; D46.9 Myelodysplastic syndrome, unspecified; D63.8 Anemia in other chronic diseases classified elsewhere; I16.0 Hypertensive urgency; E11.65 Type 2 diabetes mellitus with hyperglycemia; J44.9 Chronic obstructive pulmonary disease, unspecified; Z20.822 Contact with and (suspected) exposure to COVID-19; Z79.4 Long term (current) use of insulin
CPT/HCPCS: 36415; 71045; 80048; 80053; 81001; 82948; 83735; 83880; 84484; 85025; 86850; 86900; 86920; 93005; 93306; 93970; 94664; 94799; 99251; 99285; J1817; J1940; J7050; P9016; U0002

== ENCOUNTER 2021-11-14 18:32 | Emergency (ER) | payer MEDICARE ==
[~2021-11-14] VITALS: Ht 157.5 cm; Wt 70.3 kg
[~2021-11-14 18:32] MED LIST changes: +BASAGLAR K100 UNIT/1 SC; +CYMBALTA20 MG PO; +LISINOPRIL20 MG PO; +LORATADINE10 MG PO; +NIFEDIPINE ER30 M1 PO; +NOVOLOG100 UNIT/1 SC; +OMEPRAZOLE40 MG PO; +PROAIR HFA INH8.5 GM INH; +QUESTRAN PACKET4 GM PO; +TYLENOL325 MG PO
[2021-11-14] MEDS ORDERED: CEFTRIAXONE 1 GM VIAL IM ONE (20:30)
[2021-11-14] MEDS ORDERED: LIDOCAINE HCL 1% LOCAL INJ 20 ML VIAL ONE (20:43)
[2021-11-14] MEDS ORDERED: CEFTRIAXONE 1 GM VIAL ONE (20:43)
[2021-11-14] MEDS ORDERED: CEFUROXIME500 MG PO (20:44)
[2021-11-14] MEDS ORDERED: ONDANSETRON ODT4 MG PO (21:05)
== END 2021-11-14 21:04 | disposition home or self-care (01) ==
LOC: FSED 19:36
DX: R30.0 Dysuria (principal); N39.0 Urinary tract infection, site not specified; I50.30 Unspecified diastolic (congestive) heart failure; E11.9 Type 2 diabetes mellitus without complications; I10 Essential (primary) hypertension; D64.9 Anemia, unspecified
CPT/HCPCS: 81003; 87086; 87186; 99282; J0696; J2001

== ENCOUNTER 2022-01-02 08:40 | Emergency (ER) | payer MEDICARE, OTHER ==
[~2022-01-02] VITALS: Ht 157.5 cm; Wt 72.1 kg
[~2022-01-02 08:40] MED LIST changes: +ONDANSETRON ODT4 MG PO
[2022-01-02] MEDS ORDERED: CEPHALEXIN500 MG PO (11:26)
[2022-01-02] MEDS ORDERED: BACITRACIN ZINC 0.9GM TP ONE (11:28)
[2022-01-03] MEDS ORDERED: MUPIROCIN 2% OINT 22 GM TUBE TOP SCH (09:00)
== END 2022-01-02 12:30 | disposition home or self-care (01) ==
LOC: FSED 08:54
DX: S80.02XA Contusion of left knee, initial encounter (principal); S90.32XA Contusion of left foot, initial encounter; S93.515A Sprain of interphalangeal joint of left lesser toe(s), initial encounter; S90.415A Abrasion, left lesser toe(s), initial encounter; W22.09XA Striking against other stationary object, initial encounter; Y93.11 Activity, swimming; Y92.34 Swimming pool (public) as the place of occurrence of the external cause; I12.9 Hypertensive chronic kidney disease with stage 1 through stage 4 chronic kidney disease, or unspecified chronic kidney disease; E11.22 Type 2 diabetes mellitus with diabetic chronic kidney disease; N18.9 Chronic kidney disease, unspecified; E78.5 Hyperlipidemia, unspecified; E03.9 Hypothyroidism, unspecified; I50.9 Heart failure, unspecified; J44.9 Chronic obstructive pulmonary disease, unspecified
CPT/HCPCS: 99283

== ENCOUNTER 2022-01-05 08:56 | Emergency (ER) | payer MEDICARE, OTHER ==
[~2022-01-05] VITALS: Ht 157.5 cm; Wt 72.1 kg
[~2022-01-05 08:56] MED LIST changes: +CEPHALEXIN500 MG PO
[2022-01-05] MEDS ORDERED: ACETAMINOPHEN 325 MG TAB PO ONE (09:15)
[2022-01-05] MEDS ORDERED: KETOROLAC TROMETHAMINE 30 MG/ML VIAL IM ONE (10:30)
== END 2022-01-05 11:09 | disposition home or self-care (01) ==
LOC: ER 09:19
DX: M54.50 Low back pain, unspecified (principal); S30.0XXA Contusion of lower back and pelvis, initial encounter; M25.562 Pain in left knee; M79.672 Pain in left foot; W18.39XA Other fall on same level, initial encounter; Y93.01 Activity, walking, marching and hiking; Y92.89 Other specified places as the place of occurrence of the external cause
CPT/HCPCS: 70450; 72125; 72128; 72131; 99283

== ENCOUNTER 2022-05-09 15:09 | Inpatient (IN) | payer MEDICARE ==
[~2022-05-09] VITALS: Ht 157.5 cm; Wt 72.1 kg
[2022-05-09 15:54] LABS: BASOPHILS # (AUTO) 0.1 (0.0-0.1); BASOPHILS % 0.5 % (0.0-1.0); EOSINOPHILS # (AUTO) 0.3 (0.0-0.4); EOSINOPHILS % 2.5 % (0.0-6.0); HEMOGLOBIN 7.1 g/dL (12.0-16.0); LYMPHOCYTES # (AUTO) 1.2 (1.0-3.2); MEAN CORPUSCULAR HEMOGLOBIN 38.6 pg (28-32); MEAN CORPUSCULAR HGB CONC 32.3 g/dL (31-35); MEAN CORPUSCULAR VOLUME 119.6 fL (81-99); MONOCYTES # (AUTO) 0.7 (0.2-0.8); MONOCYTES % 6.7 % (4.4-11.3); NEUTROPHILS # (AUTO) 8.5 (2.1-6.9); NEUTROPHILS % 78.7 % (38.7-80.0); PLATELET COUNT 208 x10e3/uL (140-360); RED BLOOD COUNT 1.84 x10e6/uL (3.6-5.1)
[2022-05-09 16:11] LABS: ALBUMIN/GLOBULIN RATIO 1.5 (0.8-2.0); ANION GAP 16.8 mmol/L (8-16); CALCIUM 8.7 mg/dL (8.4-10.2); CREATININE, SERUM 1.56 mg/dL (0.57-1.11); POTASSIUM 4.8 mmol/L (3.5-5.1)
[2022-05-09] MEDS ORDERED: ONDANSETRON HCL INJ 2MG/ML 2ML 2 MG/ML VIAL IV PRN (17:15)
[2022-05-09] MEDS ORDERED: SODIUM CHLORIDE FLUSH 10 ML SYR INJ PRN (17:15)
[2022-05-09] MEDS ORDERED: FUROSEMIDE INJ 10 MG/ML 4 ML VIAL IV ONE (17:15)
[2022-05-09] MEDS ORDERED: ACETAMINOPHEN 325 MG TAB PO PRN (17:30)
[2022-05-09] MEDS ORDERED: DEXTROSE 50% SYRINGE 50 ML IV PRN (17:30)
[2022-05-09] MEDS ORDERED: ALBUTEROL SULFATE HFA 8GM INHALATION AEROSOL INH PRN (17:30)
[2022-05-09] MEDS ORDERED: FUROSEMIDE INJ 10 MG/ML 2 ML VIAL IV ONE ×2 (17:45→22:30)
[2022-05-09] MEDS ORDERED: SODIUM CHLORIDE 0.9% 250ML 250 ML IV ONE (18:00)
[2022-05-09 18:05] LABS: THYROID STIMULATING HORMONE 1.242 uIU/mL (0.350-4.940)
[2022-05-09 20:00] VITALS: BP 162/45
[2022-05-09] MEDS ORDERED: METOPROLOL TARTRATE 50 MG TAB PO ONE (21:30)
[2022-05-09] MEDS: SIMVASTATIN 20 MG TAB PO SCH (21:32)
[2022-05-09] MEDS: INSULIN GLARGINE 100 UNITS/ML VIAL SQ SCH (21:37)
[2022-05-09] MEDS: INSULIN REGULAR, HUMAN 100 UNIT/1 ML SQ SCH (21:38)
[2022-05-09 21:46] VITALS: BP 162/45
[2022-05-09 21:48] VITALS: BP 162/45
[2022-05-09] MEDS ORDERED: SODIUM CHLORIDE 0.9% 250ML 250 ML ONE (22:48)
[2022-05-10] VITALS (8 sets, daily range): BP systolic 150–185; BP diastolic 42–57
[2022-05-10 05:02] LABS: BASOPHILS % 0.6 % (0.0-1.0); EOSINOPHILS # (AUTO) 0.3 (0.0-0.4); EOSINOPHILS % 4.6 % (0.0-6.0); HEMATOCRIT 23.8 % (34.2-44.1); HEMOGLOBIN 7.7 g/dL (12.0-16.0); LYMPHOCYTES # (AUTO) 1.2 (1.0-3.2); LYMPHOCYTES % 17.7 % (18.0-39.1); MEAN CORPUSCULAR HGB CONC 32.4 g/dL (31-35); MEAN CORPUSCULAR VOLUME 111.2 fL (81-99); MONOCYTES # (AUTO) 0.5 (0.2-0.8); MONOCYTES % 7.7 % (4.4-11.3); NEUTROPHILS # (AUTO) 4.5 (2.1-6.9); NEUTROPHILS % 68.8 % (38.7-80.0); PLATELET COUNT 130 x10e3/uL (140-360); RED BLOOD COUNT 2.14 x10e6/uL (3.6-5.1); RED CELL DISTRIBUTION WIDTH 22.1 % (11.7-14.4)
[2022-05-10 05:18] LABS: ANION GAP 14.2 mmol/L (8-16); CALCIUM 8.5 mg/dL (8.4-10.2); CREATININE, SERUM 1.19 mg/dL (0.57-1.11); POTASSIUM 4.2 mmol/L (3.5-5.1)
[2022-05-10 05:38] LABS: CREATINE KINASE MB 0.8 ng/mL (0-5.0)
[2022-05-10] MEDS: HYDRALAZINE HCL 20 MG/ML VIAL IV PRN ×2 (06:27→21:42)
[2022-05-10] MEDS: LEVOTHYROXINE SODIUM 75 MCG TAB PO SCH (06:27)
[2022-05-10] MEDS: INSULIN REGULAR, HUMAN 100 UNIT/1 ML SQ SCH ×4 (08:30→22:00)
[2022-05-10] MEDS: METOPROLOL TARTRATE 50 MG TAB PO SCH ×2 (09:00→17:00)
[2022-05-10] MEDS: PANTOPRAZOLE SOD 40 MG TABEC PO SCH (09:00)
[2022-05-10] MEDS: BUDESONIDE/FORMOTEROL FUMARATE 80/4.5MCG 6.9 GM INH AEROSOL IH SCH ×2 (09:00→19:00)
[2022-05-10] MEDS ORDERED: immodium PO (09:47)
[2022-05-10] MEDS ORDERED: SODIUM CHLORIDE 0.9% 250ML 250 ML ONE ×2 (10:12→15:26)
[2022-05-10] MEDS ORDERED: FUROSEMIDE INJ 10 MG/ML 2 ML VIAL IV PRN (10:30)
[2022-05-10] MEDS ORDERED: SODIUM CHLORIDE 0.9% 250ML 250 ML IV ONE (10:30)
[2022-05-10] MEDS ORDERED: ONDANSETRON HCL 4 MG ORAL DISINTEGRATING TAB PO PRN (10:30)
[2022-05-10] MEDS: IRON SUCROSE 100 MG in SODIUM CHLORIDE 0.9% 100 ML IV SCH (10:36)
[2022-05-10] MEDS: NIFEDIPINE CR 30 MG TAB PO SCH (12:45)
[2022-05-10] MEDS: DOXYCYCLINE HYCLATE TABLET 100 MG TAB PO SCH ×2 (12:45→21:50)
[2022-05-10 15:01] LABS: CREATINE KINASE MB 0.8 ng/mL (0-5.0)
[2022-05-10] MEDS: FUROSEMIDE INJ 10 MG/ML 4 ML VIAL IV SCH (21:43)
[2022-05-10] MEDS: SIMVASTATIN 20 MG TAB PO SCH (21:46)
[2022-05-10] MEDS: TRAZODONE HCL 50 MG TAB PO SCH (21:46)
[2022-05-10] MEDS: INSULIN GLARGINE 100 UNITS/ML VIAL SQ SCH (22:01)
[2022-05-11] VITALS (7 sets, daily range): BP systolic 146–188; BP diastolic 49–65
[2022-05-11 04:58] LABS: BASOPHILS % 0.6 % (0.0-1.0); EOSINOPHILS # (AUTO) 0.4 (0.0-0.4); EOSINOPHILS % 5.3 % (0.0-6.0); HEMATOCRIT 26.6 % (34.2-44.1); HEMOGLOBIN 9.1 g/dL (12.0-16.0); LYMPHOCYTES # (AUTO) 0.9 (1.0-3.2); LYMPHOCYTES % 13.8 % (18.0-39.1); MEAN CORPUSCULAR HGB CONC 34.2 g/dL (31-35); MEAN CORPUSCULAR VOLUME 102.3 fL (81-99); MONOCYTES # (AUTO) 0.5 (0.2-0.8); MONOCYTES % 7.6 % (4.4-11.3); NEUTROPHILS # (AUTO) 4.9 (2.1-6.9); PLATELET COUNT 138 x10e3/uL (140-360)
[2022-05-11 05:31] LABS: ANION GAP 12.2 mmol/L (8-16); CALCIUM 8.5 mg/dL (8.4-10.2); CREATININE, SERUM 0.94 mg/dL (0.57-1.11); POTASSIUM 4.2 mmol/L (3.5-5.1)
[2022-05-11] MEDS: LEVOTHYROXINE SODIUM 75 MCG TAB PO SCH (06:41)
[2022-05-11] MEDS: BUDESONIDE/FORMOTEROL FUMARATE 80/4.5MCG 6.9 GM INH AEROSOL IH SCH ×2 (07:00→19:15)
[2022-05-11] MEDS: INSULIN REGULAR, HUMAN 100 UNIT/1 ML SQ SCH ×4 (07:30→22:42)
[2022-05-11] MEDS: LISINOPRIL 20 MG TAB PO SCH ×3 (09:00→22:37)
[2022-05-11] MEDS: METOPROLOL TARTRATE 50 MG TAB PO SCH ×2 (09:00→17:00)
[2022-05-11] MEDS: NIFEDIPINE CR 30 MG TAB PO SCH (09:00)
[2022-05-11] MEDS: DOXYCYCLINE HYCLATE TABLET 100 MG TAB PO SCH (09:00)
[2022-05-11] MEDS: DULOXETINE HCL 20 MG DELAYED RELEASE PO SCH (09:00)
[2022-05-11] MEDS: PANTOPRAZOLE SOD 40 MG TABEC PO SCH (09:00)
[2022-05-11] MEDS: IRON SUCROSE 100 MG in SODIUM CHLORIDE 0.9% 100 ML IV SCH (09:00)
[2022-05-11] MEDS: FUROSEMIDE INJ 10 MG/ML 4 ML VIAL IV SCH ×2 (10:00→18:00)
[2022-05-11] MEDS ORDERED: Vancomycin IV 1 GM in SODIUM CHLORIDE 0.9% 250ML 250 ML IV ONE (10:45)
[2022-05-11] MEDS: LOPERAMIDE HCL 2 MG CAP PO PRN (13:57)
[2022-05-11] MEDS ORDERED: IOPAMIDOL 370 MG/ML 100 ML INFUS..BTL INJ ONE (21:12)
[2022-05-11] MEDS: TRAZODONE HCL 50 MG TAB PO SCH (22:36)
[2022-05-11] MEDS: Vancomycin IV 1 GM in SODIUM CHLORIDE 0.9% 250ML 250 ML IV SCH (22:36)
[2022-05-11] MEDS: SIMVASTATIN 20 MG TAB PO SCH (22:37)
[2022-05-11] MEDS: INSULIN GLARGINE 100 UNITS/ML VIAL SQ SCH (22:42)
[2022-05-12] VITALS (8 sets, daily range): BP systolic 155–186; BP diastolic 45–60
[2022-05-12 04:57] LABS: BASOPHILS % 0.8 % (0.0-1.0); EOSINOPHILS # (AUTO) 0.4 (0.0-0.4); EOSINOPHILS % 7.6 % (0.0-6.0); HEMATOCRIT 24.6 % (34.2-44.1); LYMPHOCYTES # (AUTO) 0.8 (1.0-3.2); LYMPHOCYTES % 15.6 % (18.0-39.1); MEAN CORPUSCULAR HGB CONC 32.5 g/dL (31-35); MEAN CORPUSCULAR VOLUME 104.7 fL (81-99); MONOCYTES # (AUTO) 0.4 (0.2-0.8); MONOCYTES % 8.2 % (4.4-11.3); NEUTROPHILS # (AUTO) 3.5 (2.1-6.9); PLATELET COUNT 65 x10e3/uL (140-360); RED BLOOD COUNT 2.35 x10e6/uL (3.6-5.1)
[2022-05-12 05:11] LABS: ANION GAP 12.7 mmol/L (8-16); CALCIUM 8.4 mg/dL (8.4-10.2); CREATININE, SERUM 0.83 mg/dL (0.57-1.11); POTASSIUM 3.7 mmol/L (3.5-5.1)
[2022-05-12] MEDS: LEVOTHYROXINE SODIUM 75 MCG TAB PO SCH (06:23)
[2022-05-12] MEDS: INSULIN REGULAR, HUMAN 100 UNIT/1 ML SQ SCH ×4 (07:20→22:06)
[2022-05-12] MEDS: BUDESONIDE/FORMOTEROL FUMARATE 80/4.5MCG 6.9 GM INH AEROSOL IH SCH ×2 (08:00→19:30)
[2022-05-12 08:08] LABS: EOSINOPHILS % (MANUAL) 2 % (0-7); LYMPHOCYTES % (MANUAL) 20 % (19-48); MONOCYTES % (MANUAL) 5 % (3.4-9.0); NEUTROPHILS % (MANUAL) 73 % (40-74)
[2022-05-12 08:09] LABS: PLATELET ESTIMATE MODERATELY DECREASED; PLATELET MORPHOLOGY COMMENT NORMAL; RBC MORPHOLOGY COMMENT NORMAL
[2022-05-12] MEDS: DULOXETINE HCL 20 MG DELAYED RELEASE PO SCH (08:48)
[2022-05-12] MEDS: METOPROLOL TARTRATE 50 MG TAB PO SCH ×2 (08:48→16:47)
[2022-05-12] MEDS: FUROSEMIDE INJ 10 MG/ML 4 ML VIAL IV SCH ×2 (08:48→16:48)
[2022-05-12] MEDS: LISINOPRIL 20 MG TAB PO SCH ×2 (08:48→21:58)
[2022-05-12] MEDS: Vancomycin IV 1 GM in SODIUM CHLORIDE 0.9% 250ML 250 ML IV SCH ×2 (08:48→21:57)
[2022-05-12] MEDS: NIFEDIPINE CR 30 MG TAB PO SCH (08:49)
[2022-05-12] MEDS: PANTOPRAZOLE SOD 40 MG TABEC PO SCH (08:49)
[2022-05-12] MEDS: IRON SUCROSE 100 MG in SODIUM CHLORIDE 0.9% 100 ML IV SCH (13:00)
[2022-05-12] MEDS: LOPERAMIDE HCL 2 MG CAP PO PRN (17:50)
[2022-05-12] MEDS: SIMVASTATIN 20 MG TAB PO SCH (21:58)
[2022-05-12] MEDS: TRAZODONE HCL 50 MG TAB PO SCH (21:58)
[2022-05-12] MEDS: INSULIN GLARGINE 100 UNITS/ML VIAL SQ SCH (22:07)
[2022-05-12] MEDS: ALBUTEROL/IPRATROPIUM 3 ML NEB NEB SCH (23:20)
[2022-05-13] VITALS (9 sets, daily range): BP systolic 146–185; BP diastolic 20–56
[2022-05-13] MEDS: ALBUTEROL/IPRATROPIUM 3 ML NEB NEB SCH ×6 (03:55→23:15)
[2022-05-13] MEDS: LEVOTHYROXINE SODIUM 75 MCG TAB PO SCH (05:15)
[2022-05-13 05:34] LABS: BASOPHILS % 0.9 % (0.0-1.0); EOSINOPHILS # (AUTO) 0.3 (0.0-0.4); EOSINOPHILS % 7.9 % (0.0-6.0); HEMATOCRIT 23.3 % (34.2-44.1); HEMOGLOBIN 7.8 g/dL (12.0-16.0); LYMPHOCYTES # (AUTO) 0.9 (1.0-3.2); LYMPHOCYTES % 20.6 % (18.0-39.1); MEAN CORPUSCULAR HEMOGLOBIN 35.1 pg (28-32); MEAN CORPUSCULAR HGB CONC 33.5 g/dL (31-35); MONOCYTES # (AUTO) 0.4 (0.2-0.8); MONOCYTES % 8.1 % (4.4-11.3); NEUTROPHILS # (AUTO) 2.7 (2.1-6.9); NEUTROPHILS % 62.3 % (38.7-80.0); PLATELET COUNT 92 x10e3/uL (140-360); RED BLOOD COUNT 2.22 x10e6/uL (3.6-5.1)
[2022-05-13 05:54] LABS: ANION GAP 16.9 mmol/L (8-16); CALCIUM 8.2 mg/dL (8.4-10.2); CREATININE, SERUM 0.83 mg/dL (0.57-1.11); POTASSIUM 3.9 mmol/L (3.5-5.1)
[2022-05-13] MEDS: BUDESONIDE/FORMOTEROL FUMARATE 80/4.5MCG 6.9 GM INH AEROSOL IH SCH ×2 (06:47→19:35)
[2022-05-13] MEDS: INSULIN REGULAR, HUMAN 100 UNIT/1 ML SQ SCH ×4 (07:30→20:40)
[2022-05-13] MEDS: Vancomycin IV 1 GM in SODIUM CHLORIDE 0.9% 250ML 250 ML IV SCH (09:00)
[2022-05-13] MEDS: DULOXETINE HCL 20 MG DELAYED RELEASE PO SCH (09:16)
[2022-05-13] MEDS: FUROSEMIDE INJ 10 MG/ML 4 ML VIAL IV SCH ×2 (09:16→16:48)
[2022-05-13] MEDS: NIFEDIPINE CR 30 MG TAB PO SCH (09:17)
[2022-05-13] MEDS: LISINOPRIL 20 MG TAB PO SCH ×2 (09:17→20:35)
[2022-05-13] MEDS: METOPROLOL TARTRATE 50 MG TAB PO SCH ×2 (09:17→16:48)
[2022-05-13] MEDS: PANTOPRAZOLE SOD 40 MG TABEC PO SCH (09:18)
[2022-05-13] MEDS: TRAZODONE HCL 50 MG TAB PO SCH (20:34)
[2022-05-13] MEDS: SIMVASTATIN 20 MG TAB PO SCH (20:35)
[2022-05-13] MEDS: Vancomycin IV 750 MG in SODIUM CHLORIDE 0.9% 250ML 150 ML IV SCH (20:36)
[2022-05-13] MEDS: INSULIN GLARGINE 100 UNITS/ML VIAL SQ SCH (20:40)
[2022-05-14] VITALS: BP 150/75
[2022-05-14] MEDS: ALBUTEROL/IPRATROPIUM 3 ML NEB NEB SCH ×3 (03:45→10:48)
[2022-05-14 04:00] VITALS: BP 152/52
[2022-05-14] MEDS: LEVOTHYROXINE SODIUM 75 MCG TAB PO SCH (06:12)
[2022-05-14] MEDS: BUDESONIDE/FORMOTEROL FUMARATE 80/4.5MCG 6.9 GM INH AEROSOL IH SCH (06:48)
[2022-05-14 08:00] VITALS: BP 155/45
[2022-05-14 08:17] VITALS: BP 155/45
[2022-05-14] MEDS: FUROSEMIDE INJ 10 MG/ML 4 ML VIAL IV SCH (08:24)
[2022-05-14] MEDS: NIFEDIPINE CR 30 MG TAB PO SCH (08:25)
[2022-05-14] MEDS: DULOXETINE HCL 20 MG DELAYED RELEASE PO SCH (08:25)
[2022-05-14] MEDS: LISINOPRIL 20 MG TAB PO SCH (08:25)
[2022-05-14] MEDS: PANTOPRAZOLE SOD 40 MG TABEC PO SCH (08:25)
[2022-05-14] MEDS: Vancomycin IV 750 MG in SODIUM CHLORIDE 0.9% 250ML 150 ML IV SCH (08:26)
[2022-05-14] MEDS: METOPROLOL TARTRATE 50 MG TAB PO SCH (08:26)
[2022-05-14] MEDS: INSULIN REGULAR, HUMAN 100 UNIT/1 ML SQ SCH ×2 (08:41→12:25)
[2022-05-14 11:31] VITALS: BP 141/43
[2022-05-14] MEDS ORDERED: VIBRAMYCIN100 MG PO (11:37)
[2022-05-14] MEDS ORDERED: FUROSEMIDE 40 MG TAB PO SCH (17:00)
== END 2022-05-14 15:18 | disposition home or self-care (01) | DRG 811 ==
LOC: ER 15:30 → ERHOLD 17:12 → MED/SURG 20:06 → OBSVTOIN 05-11 14:12
PROVIDERS: ADMIT Internal Medicine; ATTEND Internal Medicine
DX: D46.9 Myelodysplastic syndrome, unspecified (principal); I50.33 Acute on chronic diastolic (congestive) heart failure; I13.0 Hypertensive heart and chronic kidney disease with heart failure and stage 1 through stage 4 chronic kidney disease, or unspecified chronic kidney disease; L03.115 Cellulitis of right lower limb; N18.9 Chronic kidney disease, unspecified; E11.22 Type 2 diabetes mellitus with diabetic chronic kidney disease; J44.9 Chronic obstructive pulmonary disease, unspecified; E03.9 Hypothyroidism, unspecified; E78.5 Hyperlipidemia, unspecified; Z90.49 Acquired absence of other specified parts of digestive tract; Z82.49 Family history of ischemic heart disease and other diseases of the circulatory system; Z80.52 Family history of malignant neoplasm of bladder; Z79.4 Long term (current) use of insulin
CPT/HCPCS: 0223U; 36415; 71045; 71260; 80048; 80053; 80202; 82550; 82553; 82948; 83540; 83880; 84443; 84466; 84484; 85025; 85379; 86850; 86900; 86920; 93005; 93306; 93971; 94664; 94799; 96372; 99284; G0378; J0360; J1756; J1815; J1817; J1940; J3370; J7050; P9016; Q9967

== ENCOUNTER 2022-09-18 12:59 | Inpatient (IN) | payer MEDICARE ==
[2022-09-18] VITALS (17 sets, daily range): BP systolic 127–184; BP diastolic 40–68
[~2022-09-18] VITALS: Ht 157.5 cm; Wt 74.0 kg
[~2022-09-18 12:59] MED LIST changes: +VIBRAMYCIN100 MG PO; +immodium PO
[2022-09-18] MEDS ORDERED: Vancomycin IV 1 GM in SODIUM CHLORIDE 0.9% 250ML 250 ML IV ONE (13:30)
[2022-09-18] MEDS ORDERED: CEFEPIME 2 GM in SODIUM CHLORIDE 0.9% 100 ML IV ONE ×2 (13:30→14:00)
[2022-09-18] MEDS ORDERED: CEFEPIME 2 GM VIAL ONE (13:36)
[2022-09-18] MEDS ORDERED: Vancomycin IV 1 GM VIAL ONE (13:36)
[2022-09-18] MEDS ORDERED: SODIUM CHLORIDE 0.9% 250ML 500 ML ONE (13:36)
[2022-09-18 13:39] LABS: BASOPHILS # (AUTO) 0.2 (0.0-0.1); BASOPHILS % 0.9 % (0.0-1.0); EOSINOPHILS # (AUTO) 0.5 (0.0-0.4); EOSINOPHILS % 1.9 % (0.0-6.0); HEMATOCRIT 23.7 % (34.2-44.1); LYMPHOCYTES # (AUTO) 9.1 (1.0-3.2); LYMPHOCYTES % 36.6 % (18.0-39.1); MEAN CORPUSCULAR HEMOGLOBIN 38.7 pg (28-32); MEAN CORPUSCULAR HGB CONC 29.5 g/dL (31-35); MEAN CORPUSCULAR VOLUME 130.9 fL (81-99); MONOCYTES # (AUTO) 2.1 (0.2-0.8); MONOCYTES % 8.5 % (4.4-11.3); NEUTROPHILS # (AUTO) 12.8 (2.1-6.9); NEUTROPHILS % 51.3 % (38.7-80.0); PLATELET COUNT 442 x10e3/uL (140-360); RED BLOOD COUNT 1.81 x10e6/uL (3.6-5.1); RED CELL DISTRIBUTION WIDTH 15.4 % (11.7-14.4)
[2022-09-18 13:47] LABS: INR 1.17; PROTHROMBIN TIME 15.1 seconds (11.9-14.5)
[2022-09-18 13:48] LABS: PARTIAL THROMBOPLASTIN TIME 26.9 seconds (23.8-35.5)
[2022-09-18] MEDS ORDERED: PROPOFOL IV EMULSION 50 ML IV ONE (13:49)
[2022-09-18] MEDS ORDERED: VECURONIUM BROMIDE FOR INJ 20 MG VIAL IV ONE (13:57)
[2022-09-18] MEDS ORDERED: SODIUM CHLORIDE 0.9% 250ML 250 ML IV ONE (14:00)
[2022-09-18] MEDS ORDERED: FUROSEMIDE INJ 10 MG/ML 4 ML VIAL IV SCH (14:00)
[2022-09-18] MEDS ORDERED: Vancomycin IV 500 MG in SODIUM CHLORIDE 0.9% 100 ML IV ONE (14:00)
[2022-09-18 14:01] LABS: CLARITY,URINE CLOUDY (CLEAR); COLOR,URINE YELLOW (YELLOW)
[2022-09-18 14:02] LABS: KETONES,URINE NEGATIVE (NEGATIVE); LEUKOCYTE ESTERASE ,URINE NEGATIVE (NEGATIVE); NITRITE,URINE POSITIVE (NEGATIVE); PROTEIN,URINE DIPSTICK >=300 (NEGATIVE); URINE UROBILINOGEN 0.2 mg/dL (0.2 - 1)
[2022-09-18 14:02] LABS: ALBUMIN 3.7 g/dL (3.5-5.0); ALBUMIN/GLOBULIN RATIO 1.2 (0.8-2.0); ANION GAP 17.5 mmol/L (8-16); CALCIUM 8.8 mg/dL (8.4-10.2); CREATININE, SERUM 0.98 mg/dL (0.57-1.11); MAGNESIUM 1.7 MG/DL (1.3-2.1); POTASSIUM 4.5 mmol/L (3.5-5.1)
[2022-09-18 14:08] LABS: CREATINE KINASE MB 0.9 ng/mL (0-5.0)
[2022-09-18] MEDS ORDERED: SODIUM CHLORIDE 0.9% 1000ML 1,000 ML IV STA (14:09)
[2022-09-18 14:13] LABS: BACTERIA,URINE MANY /HPF; RBC,URINE >50 /HPF (0-5); WBC,URINE (MAN) >50 /HPF (0-5)
[2022-09-18 14:14] LABS: EPITHELIAL CELLS,URINE MANY /LPF
[2022-09-18] MEDS: FUROSEMIDE INJ 10 MG/ML 2 ML VIAL IV SCH ×2 (14:24→22:35)
[2022-09-18 14:45] LABS: ABG PH 7.25 (7.35-7.45)
[2022-09-18] MEDS ORDERED: DEXTROSE 50% SYRINGE 50 ML IV PRN (14:45)
[2022-09-18] MEDS: PROPOFOL IV EMULSION 10MG/ML 100 ML IV SCH ×2 (14:45→17:41)
[2022-09-18 14:54] LABS: ABG HCO3 23 mmol/L (22-26); ABG PCO2 53 mmHg (35-45); ABG PO2 372 mmHg (80-105); ABG TCO2 25
[2022-09-18 15:47] LABS: EOSINOPHILS % (MANUAL) 1 % (0-7); LYMPHOCYTES % (MANUAL) 36 % (19-48); MONOCYTES % (MANUAL) 7 % (3.4-9.0); NEUTROPHILS % (MANUAL) 53 % (40-74); PLATELET ESTIMATE ADEQUATE; PLATELET MORPHOLOGY COMMENT NORMAL; RBC MORPHOLOGY COMMENT NORMAL
[2022-09-18] MEDS ORDERED: SODIUM BICARBONATE 8.4% 50 ML in SODIUM CHLORIDE 0.45% 1,000 ML IV SCH (16:00)
[2022-09-18 16:04] LABS: ABG HCO3 23 mmol/L (22-26); ABG PCO2 46 mmHg (35-45); ABG PH 7.31 (7.35-7.45); ABG PO2 115 mmHg (80-105); ABG TCO2 25
[2022-09-18] MEDS: INSULIN LISPRO 100 UNIT/1 ML 3ML VIAL SQ SCH ×2 (16:30→21:00)
[2022-09-18] MEDS: LISINOPRIL 20 MG TAB PO SCH (17:00)
[2022-09-18] MEDS ORDERED: FENTANYL 2000MCG/NS 250 250 ML IV PRN (17:45)
[2022-09-18] MEDS: BUDESONIDE/FORMOTEROL FUMARATE 80/4.5MCG 6.9 GM INH AEROSOL IH SCH ×2 (18:44→19:45)
[2022-09-18] MEDS: FAMOTIDINE 20 MG/2 ML VIAL IV SCH (19:15)
[2022-09-18] MEDS ORDERED: ETOMIDATE 2 MG/ML 10 ML INJ IV ONE (19:56)
[2022-09-18] MEDS ORDERED: SUCCINYLCHOLINE CHLORIDE 20 MG/ML 10ML VIAL ONE (19:56)
[2022-09-18] MEDS ORDERED: VECURONIUM BROMIDE FOR INJ 20 MG VIAL ONE (19:56)
[2022-09-18] MEDS ORDERED: SODIUM CHLORIDE 0.9% 250ML 250 ML ONE (20:11)
[2022-09-18] MEDS: HYDRALAZINE HCL 20 MG/ML VIAL IV PRN (22:05)
[2022-09-19] VITALS (62 sets, daily range): BP systolic 133–209; BP diastolic 41–98
[2022-09-19] MEDS: PROPOFOL IV EMULSION 10MG/ML 100 ML IV SCH (03:37)
[2022-09-19] MEDS: FUROSEMIDE INJ 10 MG/ML 2 ML VIAL IV SCH (04:54)
[2022-09-19] MEDS: LEVOTHYROXINE SODIUM 75 MCG TAB PO SCH (05:08)
[2022-09-19] MEDS: INSULIN LISPRO 100 UNIT/1 ML 3ML VIAL SQ SCH ×4 (07:30→21:00)
[2022-09-19] MEDS: PANTOPRAZOLE SOD 40 MG TABEC PO SCH (08:32)
[2022-09-19] MEDS: FAMOTIDINE 20 MG/2 ML VIAL IV SCH ×2 (08:32→18:12)
[2022-09-19] MEDS: LISINOPRIL 20 MG TAB PO SCH ×2 (08:32→18:12)
[2022-09-19 09:00] LABS: ABG HCO3 26 mmol/L (22-26); ABG PCO2 38 mmHg (35-45); ABG PH 7.44 (7.35-7.45); ABG PO2 93 mmHg (80-105); ABG TCO2 27
[2022-09-19] MEDS ORDERED: NON-FORMULARY MEDICATION (Levothyroxine Sodium (Tirosint) 75 MCG) PO SCH (09:00)
[2022-09-19] MEDS: HYDRALAZINE HCL 20 MG/ML VIAL IV PRN ×3 (09:05→19:40)
[2022-09-19 09:15] LABS: BASOPHILS # (AUTO) 0.1 (0.0-0.1); BASOPHILS % 0.7 % (0.0-1.0); EOSINOPHILS # (AUTO) 0.1 (0.0-0.4); EOSINOPHILS % 1.3 % (0.0-6.0); HEMATOCRIT 25.9 % (34.2-44.1); HEMOGLOBIN 8.2 g/dL (12.0-16.0); LYMPHOCYTES # (AUTO) 0.7 (1.0-3.2); LYMPHOCYTES % 8.1 % (18.0-39.1); MEAN CORPUSCULAR HEMOGLOBIN 35.5 pg (28-32); MEAN CORPUSCULAR HGB CONC 31.7 g/dL (31-35); MEAN CORPUSCULAR VOLUME 112.1 fL (81-99); MONOCYTES # (AUTO) 0.7 (0.2-0.8); MONOCYTES % 7.9 % (4.4-11.3); NEUTROPHILS # (AUTO) 7.1 (2.1-6.9); NEUTROPHILS % 81.2 % (38.7-80.0); PLATELET COUNT 134 x10e3/uL (140-360); RED BLOOD COUNT 2.31 x10e6/uL (3.6-5.1); RED CELL DISTRIBUTION WIDTH 22.2 % (11.7-14.4)
[2022-09-19 09:37] LABS: ALBUMIN/GLOBULIN RATIO 1.1 (0.8-2.0); ANION GAP 13.7 mmol/L (8-16); CALCIUM 8.3 mg/dL (8.4-10.2); CREATININE, SERUM 0.92 mg/dL (0.57-1.11); POTASSIUM 3.7 mmol/L (3.5-5.1)
[2022-09-19 09:43] LABS: CREATINE KINASE MB 1.6 ng/mL (0-5.0)
[2022-09-19 09:54] LABS: ANISOCYTOSIS MODERATE; PLATELET ESTIMATE SLIGHTLY DECREASED; PLATELET MORPHOLOGY COMMENT NORMAL; RBC MORPHOLOGY COMMENT ABNORMAL
[2022-09-19] MEDS: ALBUTEROL/IPRATROPIUM 3 ML NEB NEB SCH ×3 (10:30→18:35)
[2022-09-19] MEDS ORDERED: LOPERAMIDE HCL 2 MG CAP PO ONE (11:30)
[2022-09-19] MEDS ORDERED: POTASSIUM CHLORIDE 20MEQ/100ML 200 ML IV ONE (11:30)
[2022-09-19] MEDS ORDERED: FUROSEMIDE INJ 10 MG/ML 4 ML VIAL IV ONE (11:30)
[2022-09-19] MEDS: BUDESONIDE/FORMOTEROL FUMARATE 80/4.5MCG 6.9 GM INH AEROSOL IH SCH (19:00)
[2022-09-19] MEDS: ACETAMINOPHEN 325 MG TAB PO PRN (20:24)
[2022-09-19] MEDS: SIMVASTATIN 20 MG TAB PO SCH (20:24)
[2022-09-19] MEDS ORDERED: METOPROLOL TARTRATE 50 MG TAB PO ONE (21:30)
[2022-09-20] VITALS (44 sets, daily range): BP systolic 115–190; BP diastolic 41–172
[2022-09-20] MEDS: ALBUTEROL/IPRATROPIUM 3 ML NEB NEB SCH ×4 (00:56→19:30)
[2022-09-20] MEDS: HYDRALAZINE HCL 20 MG/ML VIAL IV PRN ×2 (01:08→05:22)
[2022-09-20] MEDS: ONDANSETRON HCL INJ 2MG/ML 2ML 2 MG/ML VIAL IV PRN ×3 (02:12→17:42)
[2022-09-20] MEDS: LOPERAMIDE HCL 2 MG CAP PO PRN (05:11)
[2022-09-20] MEDS: LEVOTHYROXINE SODIUM 75 MCG TAB PO SCH (05:11)
[2022-09-20 06:50] LABS: BASOPHILS # (AUTO) 0.1 (0.0-0.1); BASOPHILS % 0.6 % (0.0-1.0); EOSINOPHILS # (AUTO) 0.1 (0.0-0.4); HEMATOCRIT 25.7 % (34.2-44.1); HEMOGLOBIN 8.6 g/dL (12.0-16.0); LYMPHOCYTES # (AUTO) 0.7 (1.0-3.2); LYMPHOCYTES % 7.6 % (18.0-39.1); MEAN CORPUSCULAR HEMOGLOBIN 35.5 pg (28-32); MEAN CORPUSCULAR HGB CONC 33.5 g/dL (31-35); MEAN CORPUSCULAR VOLUME 106.2 fL (81-99); MONOCYTES # (AUTO) 0.6 (0.2-0.8); MONOCYTES % 6.5 % (4.4-11.3); NEUTROPHILS # (AUTO) 7.5 (2.1-6.9); NEUTROPHILS % 83.7 % (38.7-80.0); PLATELET COUNT 154 x10e3/uL (140-360); RED BLOOD COUNT 2.42 x10e6/uL (3.6-5.1); RED CELL DISTRIBUTION WIDTH 22.4 % (11.7-14.4)
[2022-09-20] MEDS: BUDESONIDE/FORMOTEROL FUMARATE 80/4.5MCG 6.9 GM INH AEROSOL IH SCH ×2 (07:18→19:30)
[2022-09-20 07:20] LABS: ALBUMIN 3.2 g/dL (3.5-5.0); ALBUMIN/GLOBULIN RATIO 1.1 (0.8-2.0); CALCIUM 8.2 mg/dL (8.4-10.2); CREATININE, SERUM 0.96 mg/dL (0.57-1.11)
[2022-09-20] MEDS: INSULIN LISPRO 100 UNIT/1 ML 3ML VIAL SQ SCH ×4 (07:30→20:04)
[2022-09-20 07:41] LABS: CREATINE KINASE MB 1.8 ng/mL (0-5.0)
[2022-09-20] MEDS: PANTOPRAZOLE SOD 40 MG TABEC PO SCH (08:55)
[2022-09-20] MEDS: FAMOTIDINE 20 MG/2 ML VIAL IV SCH (08:55)
[2022-09-20] MEDS: METOPROLOL TARTRATE 50 MG TAB PO SCH ×2 (08:56→16:18)
[2022-09-20] MEDS: LISINOPRIL 20 MG TAB PO SCH ×2 (08:56→16:17)
[2022-09-20] MEDS: NIFEDIPINE CR 30 MG TAB PO SCH (08:56)
[2022-09-20] MEDS: VANCOMYCIN HCL 125 MG CAPSULE PO SCH ×3 (11:35→23:26)
[2022-09-20] MEDS ORDERED: PHENAZOPYRIDINE HCL 100 MG TAB PO ONE (12:00)
[2022-09-20] MEDS: TRAMADOL HCL 50 MG TAB PO PRN ×2 (16:18→22:06)
[2022-09-20] MEDS: SIMVASTATIN 20 MG TAB PO SCH (20:05)
[2022-09-21] VITALS (32 sets, daily range): BP systolic 119–176; BP diastolic 42–71
[2022-09-21] MEDS: ALBUTEROL/IPRATROPIUM 3 ML NEB NEB SCH ×2 (01:25→07:12)
[2022-09-21] MEDS: VANCOMYCIN HCL 125 MG CAPSULE PO SCH ×3 (05:21→16:41)
[2022-09-21] MEDS: LEVOTHYROXINE SODIUM 75 MCG TAB PO SCH (05:21)
[2022-09-21] MEDS: HYDRALAZINE HCL 20 MG/ML VIAL IV PRN (05:44)
[2022-09-21 06:55] LABS: BASOPHILS % 0.4 % (0.0-1.0); EOSINOPHILS # (AUTO) 0.4 (0.0-0.4); EOSINOPHILS % 5.1 % (0.0-6.0); HEMOGLOBIN 7.7 g/dL (12.0-16.0); LYMPHOCYTES # (AUTO) 1.1 (1.0-3.2); MEAN CORPUSCULAR HEMOGLOBIN 35.6 pg (28-32); MEAN CORPUSCULAR HGB CONC 30.8 g/dL (31-35); MEAN CORPUSCULAR VOLUME 115.7 fL (81-99); MONOCYTES # (AUTO) 0.6 (0.2-0.8); MONOCYTES % 7.2 % (4.4-11.3); NEUTROPHILS # (AUTO) 6.1 (2.1-6.9); NEUTROPHILS % 74.1 % (38.7-80.0); PLATELET COUNT 175 x10e3/uL (140-360); RED BLOOD COUNT 2.16 x10e6/uL (3.6-5.1); RED CELL DISTRIBUTION WIDTH 20.1 % (11.7-14.4)
[2022-09-21 07:05] LABS: ALBUMIN/GLOBULIN RATIO 1.2 (0.8-2.0); ANION GAP 11.7 mmol/L (8-16); CALCIUM 8.5 mg/dL (8.4-10.2); CREATININE, SERUM 0.79 mg/dL (0.57-1.11); POTASSIUM 3.7 mmol/L (3.5-5.1)
[2022-09-21] MEDS: BUDESONIDE/FORMOTEROL FUMARATE 80/4.5MCG 6.9 GM INH AEROSOL IH SCH ×2 (07:12→19:20)
[2022-09-21] MEDS: INSULIN LISPRO 100 UNIT/1 ML 3ML VIAL SQ SCH ×4 (07:30→21:56)
[2022-09-21] MEDS: PANTOPRAZOLE SOD 40 MG TABEC PO SCH (07:48)
[2022-09-21 07:53] LABS: ANISOCYTOSIS MODERATE; HYPOCHROMASIA SLIGHT; PLATELET ESTIMATE ADEQUATE; PLATELET MORPHOLOGY COMMENT FEW LARGE; RBC MORPHOLOGY COMMENT ABNORMAL
[2022-09-21] MEDS ORDERED: ALBUTEROL/IPRATROPIUM 3 ML NEB NEB PRN (08:15)
[2022-09-21] MEDS ORDERED: POTASSIUM CHLORIDE 20MEQ/100ML 100 ML IV ONE (08:30)
[2022-09-21] MEDS: LISINOPRIL 20 MG TAB PO SCH ×2 (08:40→16:43)
[2022-09-21] MEDS: NIFEDIPINE CR 30 MG TAB PO SCH (08:40)
[2022-09-21] MEDS: METOPROLOL TARTRATE 50 MG TAB PO SCH ×2 (08:41→16:43)
[2022-09-21] MEDS: IPRATROPIUM/ALBUTEROL SULFATE 4 GM INH INH SCH ×2 (14:15→19:20)
[2022-09-21] MEDS: SIMVASTATIN 20 MG TAB PO SCH (21:52)
[2022-09-21] MEDS: LOPERAMIDE HCL 2 MG CAP PO PRN (21:52)
[2022-09-22] VITALS (8 sets, daily range): BP systolic 146–167; BP diastolic 48–66
[2022-09-22] MEDS: VANCOMYCIN HCL 125 MG CAPSULE PO SCH ×4 (00:03→17:53)
[2022-09-22] MEDS: IPRATROPIUM/ALBUTEROL SULFATE 4 GM INH INH SCH ×4 (00:20→19:15)
[2022-09-22] MEDS: LEVOTHYROXINE SODIUM 75 MCG TAB PO SCH (06:05)
[2022-09-22 06:21] LABS: BASOPHILS # (AUTO) 0.1 (0.0-0.1); BASOPHILS % 0.6 % (0.0-1.0); EOSINOPHILS # (AUTO) 0.7 (0.0-0.4); EOSINOPHILS % 7.1 % (0.0-6.0); LYMPHOCYTES # (AUTO) 0.9 (1.0-3.2); LYMPHOCYTES % 8.7 % (18.0-39.1); MEAN CORPUSCULAR HEMOGLOBIN 35.9 pg (28-32); MEAN CORPUSCULAR HGB CONC 33.2 g/dL (31-35); MEAN CORPUSCULAR VOLUME 108.3 fL (81-99); MONOCYTES # (AUTO) 0.7 (0.2-0.8); NEUTROPHILS # (AUTO) 7.4 (2.1-6.9); NEUTROPHILS % 76.3 % (38.7-80.0); RED BLOOD COUNT 2.06 x10e6/uL (3.6-5.1); RED CELL DISTRIBUTION WIDTH 19.7 % (11.7-14.4)
[2022-09-22 06:28] LABS: HEMATOCRIT 23.9 % (34.2-44.1); HEMOGLOBIN 7.3 g/dL (12.0-16.0)
[2022-09-22 06:29] LABS: PLATELET COUNT 184 x10e3/uL (140-360)
[2022-09-22 06:46] LABS: ALBUMIN 3.1 g/dL (3.5-5.0); ALBUMIN/GLOBULIN RATIO 1.3 (0.8-2.0); ANION GAP 10.3 mmol/L (8-16); CALCIUM 8.3 mg/dL (8.4-10.2); CREATININE, SERUM 0.8 mg/dL (0.57-1.11); POTASSIUM 4.3 mmol/L (3.5-5.1)
[2022-09-22] MEDS: BUDESONIDE/FORMOTEROL FUMARATE 80/4.5MCG 6.9 GM INH AEROSOL IH SCH ×2 (07:15→19:15)
[2022-09-22] MEDS: INSULIN LISPRO 100 UNIT/1 ML 3ML VIAL SQ SCH ×4 (07:30→21:00)
[2022-09-22] MEDS: METOPROLOL TARTRATE 50 MG TAB PO SCH ×2 (09:24→17:53)
[2022-09-22] MEDS: LISINOPRIL 20 MG TAB PO SCH ×2 (09:25→17:54)
[2022-09-22] MEDS: PANTOPRAZOLE SOD 40 MG TABEC PO SCH (09:25)
[2022-09-22] MEDS: NIFEDIPINE CR 30 MG TAB PO SCH (09:25)
[2022-09-22] MEDS ORDERED: ONDANSETRON HCL 4 MG ORAL DISINTEGRATING TAB PO PRN (09:45)
[2022-09-22] MEDS ORDERED: SODIUM CHLORIDE 0.9% 250ML 250 ML ONE (13:16)
[2022-09-22] MEDS: CHOLESTYRAMINE 4 GM PACKET PO SCH ×2 (15:57→22:01)
[2022-09-22] MEDS: SIMVASTATIN 20 MG TAB PO SCH (22:01)
[2022-09-23] VITALS (21 sets, daily range): BP systolic 100–181; BP diastolic 35–76
[2022-09-23] MEDS: VANCOMYCIN HCL 125 MG CAPSULE PO SCH ×4 (00:29→18:00)
[2022-09-23] MEDS: IPRATROPIUM/ALBUTEROL SULFATE 4 GM INH INH SCH ×4 (01:10→19:00)
[2022-09-23] MEDS: LEVOTHYROXINE SODIUM 75 MCG TAB PO SCH (06:34)
[2022-09-23 07:15] LABS: BASOPHILS % 0.3 % (0.0-1.0); EOSINOPHILS # (AUTO) 0.4 (0.0-0.4); EOSINOPHILS % 3.7 % (0.0-6.0); HEMATOCRIT 23.3 % (34.2-44.1); HEMOGLOBIN 7.2 g/dL (12.0-16.0); LYMPHOCYTES # (AUTO) 0.7 (1.0-3.2); LYMPHOCYTES % 6.8 % (18.0-39.1); MEAN CORPUSCULAR HEMOGLOBIN 35.3 pg (28-32); MEAN CORPUSCULAR HGB CONC 30.9 g/dL (31-35); MEAN CORPUSCULAR VOLUME 114.2 fL (81-99); MONOCYTES # (AUTO) 0.7 (0.2-0.8); MONOCYTES % 6.8 % (4.4-11.3); NEUTROPHILS # (AUTO) 8.8 (2.1-6.9); PLATELET COUNT 179 x10e3/uL (140-360); RED BLOOD COUNT 2.04 x10e6/uL (3.6-5.1); RED CELL DISTRIBUTION WIDTH 18.1 % (11.7-14.4)
[2022-09-23] MEDS: BUDESONIDE/FORMOTEROL FUMARATE 80/4.5MCG 6.9 GM INH AEROSOL IH SCH ×2 (07:15→19:00)
[2022-09-23] MEDS: INSULIN LISPRO 100 UNIT/1 ML 3ML VIAL SQ SCH ×4 (07:30→21:00)
[2022-09-23] MEDS: NIFEDIPINE CR 30 MG TAB PO SCH (09:25)
[2022-09-23] MEDS: LISINOPRIL 20 MG TAB PO SCH ×2 (09:26→17:00)
[2022-09-23] MEDS: METOPROLOL TARTRATE 50 MG TAB PO SCH ×2 (09:26→17:00)
[2022-09-23] MEDS: CHOLESTYRAMINE 4 GM PACKET PO SCH ×3 (09:26→21:16)
[2022-09-23] MEDS: PANTOPRAZOLE SOD 40 MG TABEC PO SCH (09:26)
[2022-09-23 11:52] LABS: BAND NEUTROPHILS % (MANUAL) 1 %; EOSINOPHILS % (MANUAL) 1 % (0-7); LYMPHOCYTES % (MANUAL) 6 % (19-48); NEUTROPHILS % (MANUAL) 92 % (40-74); PLATELET ESTIMATE ADEQUATE
[2022-09-23 11:53] LABS: PLATELET MORPHOLOGY COMMENT NORMAL; RBC MORPHOLOGY COMMENT NORMAL
[2022-09-23] MEDS: METRONIDAZOLE 500MG/NS 100ML 100 ML IV SCH ×2 (14:00→21:15)
[2022-09-23 14:44] LABS: ABG PH 7.36 (7.35-7.45)
[2022-09-23 14:45] LABS: ABG HCO3 29 mmol/L (22-26); ABG PCO2 53 mmHg (35-45); ABG PO2 510 mmHg (80-105); ABG TCO2 31
[2022-09-23 14:58] LABS: BASOPHILS # (AUTO) 0.2 (0.0-0.1); BASOPHILS % 0.6 % (0.0-1.0); EOSINOPHILS # (AUTO) 0.9 (0.0-0.4); EOSINOPHILS % 3.2 % (0.0-6.0); HEMATOCRIT 29.4 % (34.2-44.1); HEMOGLOBIN 8.8 g/dL (12.0-16.0); LYMPHOCYTES # (AUTO) 6.2 (1.0-3.2); LYMPHOCYTES % 21.3 % (18.0-39.1); MEAN CORPUSCULAR HEMOGLOBIN 35.6 pg (28-32); MEAN CORPUSCULAR HGB CONC 29.9 g/dL (31-35); MONOCYTES # (AUTO) 2.5 (0.2-0.8); MONOCYTES % 8.5 % (4.4-11.3); NEUTROPHILS # (AUTO) 19.1 (2.1-6.9); RED BLOOD COUNT 2.47 x10e6/uL (3.6-5.1); RED CELL DISTRIBUTION WIDTH 18.6 % (11.7-14.4)
[2022-09-23 15:00] LABS: PLATELET COUNT 375 x10e3/uL (140-360)
[2022-09-23] MEDS ORDERED: PROPOFOL IV EMULSION 10MG/ML 100 ML IV PRN (15:00)
[2022-09-23 15:06] LABS: ALBUMIN 3.5 g/dL (3.5-5.0); ALBUMIN/GLOBULIN RATIO 1.1 (0.8-2.0); ANION GAP 11.2 mmol/L (8-16); CALCIUM 8.8 mg/dL (8.4-10.2); CREATININE, SERUM 0.74 mg/dL (0.57-1.11)
[2022-09-23] MEDS ORDERED: ETOMIDATE 2 MG/ML 10 ML INJ IV ONE (15:07)
[2022-09-23] MEDS ORDERED: SUCCINYLCHOLINE CHLORIDE 20 MG/ML 10ML VIAL ONE (15:07)
[2022-09-23] MEDS ORDERED: VECURONIUM BROMIDE FOR INJ 20 MG VIAL ONE (15:07)
[2022-09-23 15:11] LABS: POTASSIUM 5.2 mmol/L (3.5-5.1)
[2022-09-23 15:12] LABS: CREATINE KINASE MB 0.4 ng/mL (0-5.0)
[2022-09-23] MEDS ORDERED: IOPAMIDOL 370 MG/ML 100 ML INFUS..BTL INJ ONE (16:45)
[2022-09-23] MEDS ORDERED: FUROSEMIDE INJ 10 MG/ML 4 ML VIAL IV ONE (18:45)
[2022-09-23] MEDS ORDERED: FENTANYL 2000MCG/NS 250 250 ML IV PRN (19:00)
[2022-09-23] MEDS: SIMVASTATIN 20 MG TAB PO SCH (20:18)
[2022-09-24] VITALS (50 sets, daily range): BP systolic 116–185; BP diastolic 34–87
[2022-09-24] MEDS: IPRATROPIUM/ALBUTEROL SULFATE 4 GM INH INH SCH ×4 (01:00→19:48)
[2022-09-24] MEDS: METRONIDAZOLE 500MG/NS 100ML 100 ML IV SCH ×3 (05:20→21:56)
[2022-09-24] MEDS: VANCOMYCIN HCL 125 MG CAPSULE PO SCH ×4 (05:20→17:21)
[2022-09-24] MEDS: LEVOTHYROXINE SODIUM 75 MCG TAB PO SCH (05:20)
[2022-09-24] MEDS: BUDESONIDE/FORMOTEROL FUMARATE 80/4.5MCG 6.9 GM INH AEROSOL IH SCH ×2 (07:00→19:48)
[2022-09-24 07:19] LABS: CREATINE KINASE MB 0.5 ng/mL (0-5.0)
[2022-09-24] MEDS: INSULIN LISPRO 100 UNIT/1 ML 3ML VIAL SQ SCH ×4 (07:30→21:00)
[2022-09-24] MEDS: PANTOPRAZOLE SOD 40 MG TABEC PO SCH (07:30)
[2022-09-24 07:45] LABS: BASOPHILS % 0.6 % (0.0-1.0); EOSINOPHILS # (AUTO) 0.3 (0.0-0.4); EOSINOPHILS % 4.7 % (0.0-6.0); HEMOGLOBIN 6.5 g/dL (12.0-16.0); LYMPHOCYTES # (AUTO) 0.9 (1.0-3.2); LYMPHOCYTES % 15.2 % (18.0-39.1); MEAN CORPUSCULAR HEMOGLOBIN 34.8 pg (28-32); MEAN CORPUSCULAR HGB CONC 30.8 g/dL (31-35); MEAN CORPUSCULAR VOLUME 112.8 fL (81-99); MONOCYTES # (AUTO) 0.5 (0.2-0.8); MONOCYTES % 7.3 % (4.4-11.3); NEUTROPHILS # (AUTO) 4.5 (2.1-6.9); PLATELET COUNT 95 x10e3/uL (140-360); RED BLOOD COUNT 1.87 x10e6/uL (3.6-5.1); RED CELL DISTRIBUTION WIDTH 18.1 % (11.7-14.4)
[2022-09-24 08:01] LABS: ALBUMIN 2.8 g/dL (3.5-5.0); ALBUMIN/GLOBULIN RATIO 1.3 (0.8-2.0); CALCIUM 8.4 mg/dL (8.4-10.2); CREATININE, SERUM 0.83 mg/dL (0.57-1.11)
[2022-09-24 08:10] LABS: HEMATOCRIT 21.1 % (34.2-44.1)
[2022-09-24] MEDS ORDERED: FUROSEMIDE INJ 10 MG/ML 2 ML VIAL IV SCH (08:15)
[2022-09-24] MEDS ORDERED: FUROSEMIDE INJ 10 MG/ML 4 ML VIAL IV ONE (08:15)
[2022-09-24] MEDS ORDERED: SODIUM CHLORIDE 0.9% 250ML 250 ML IV ONE (08:15)
[2022-09-24] MEDS: METOPROLOL TARTRATE 50 MG TAB PO SCH ×3 (09:00→17:00)
[2022-09-24] MEDS: LISINOPRIL 20 MG TAB PO SCH ×2 (09:00→17:00)
[2022-09-24 09:29] LABS: ABG PCO2 34 mmHg (35-45); ABG PH 7.51 (7.35-7.45)
[2022-09-24 09:30] LABS: ABG HCO3 27 mmol/L (22-26); ABG PO2 51 mmHg (80-105); ABG TCO2 28
[2022-09-24 09:35] LABS: ABG HCO3 28 mmol/L (22-26); ABG PCO2 39 mmHg (35-45); ABG PH 7.47 (7.35-7.45); ABG PO2 93 mmHg (80-105); ABG TCO2 29
[2022-09-24] MEDS: CHOLESTYRAMINE 4 GM PACKET PO SCH ×3 (10:00→21:58)
[2022-09-24] MEDS: HYDRALAZINE HCL 20 MG/ML VIAL IV PRN ×2 (11:28→19:10)
[2022-09-24 15:26] LABS: ABG PCO2 32 mmHg (35-45); ABG PH 7.57 (7.35-7.45)
[2022-09-24 15:27] LABS: ABG HCO3 29 mmol/L (22-26); ABG PO2 151 mmHg (80-105); ABG TCO2 30
[2022-09-24] MEDS ORDERED: METOLAZONE 5 MG TAB PO ONE (15:30)
[2022-09-24 15:42] LABS: CREATINE KINASE MB 0.7 ng/mL (0-5.0)
[2022-09-24] MEDS ORDERED: FONDAPARINUX SODIUM 2.5 MG/0.5 ML SYR SQ SCH (17:00)
[2022-09-24] MEDS: SIMVASTATIN 20 MG TAB PO SCH (21:00)
[2022-09-24] MEDS: FUROSEMIDE INJ 10 MG/ML 4 ML VIAL IV SCH (21:57)
[2022-09-24 23:49] LABS: CREATINE KINASE MB 0.6 ng/mL (0-5.0)
[2022-09-25] VITALS (22 sets, daily range): BP systolic 154–191; BP diastolic 41–78
[2022-09-25] MEDS: HYDRALAZINE HCL 20 MG/ML VIAL IV PRN ×4 (02:06→22:34)
[2022-09-25] MEDS: IPRATROPIUM/ALBUTEROL SULFATE 4 GM INH INH SCH ×4 (02:30→19:55)
[2022-09-25] MEDS: VANCOMYCIN HCL 125 MG CAPSULE PO SCH ×5 (05:43→23:58)
[2022-09-25] MEDS: LEVOTHYROXINE SODIUM 75 MCG TAB PO SCH (05:43)
[2022-09-25] MEDS: METRONIDAZOLE 500MG/NS 100ML 100 ML IV SCH ×3 (05:43→22:33)
[2022-09-25 06:39] LABS: BASOPHILS % 0.4 % (0.0-1.0); EOSINOPHILS # (AUTO) 0.3 (0.0-0.4); EOSINOPHILS % 3.9 % (0.0-6.0); HEMATOCRIT 25.5 % (34.2-44.1); LYMPHOCYTES # (AUTO) 0.7 (1.0-3.2); LYMPHOCYTES % 9.5 % (18.0-39.1); MEAN CORPUSCULAR HEMOGLOBIN 33.9 pg (28-32); MEAN CORPUSCULAR HGB CONC 31.4 g/dL (31-35); MEAN CORPUSCULAR VOLUME 108.1 fL (81-99); MONOCYTES # (AUTO) 0.5 (0.2-0.8); MONOCYTES % 7.5 % (4.4-11.3); NEUTROPHILS # (AUTO) 5.7 (2.1-6.9); NEUTROPHILS % 78.3 % (38.7-80.0); PLATELET COUNT 131 x10e3/uL (140-360); RED BLOOD COUNT 2.36 x10e6/uL (3.6-5.1)
[2022-09-25 06:59] LABS: ALBUMIN/GLOBULIN RATIO 1.2 (0.8-2.0); ALKALINE PHOSPHATASE 39 IU/L (40-150); ANION GAP 16.3 mmol/L (8-16); BLOOD UREA NITROGEN 11 mg/dL (7-26); BUN/CREATININE RATIO 14 (6-25); CALCIUM 8.6 mg/dL (8.4-10.2); CARBON DIOXIDE 26 mmol/L (22-29); CHLORIDE 103 mmol/L (98-107); CREATININE, SERUM 0.79 mg/dL (0.57-1.11); GLUCOSE 111 mg/dL (74-118); POTASSIUM 3.3 mmol/L (3.5-5.1); SODIUM 142 mmol/L (136-145)
[2022-09-25 07:02] LABS: ALANINE AMINOTRANSFERASE < 6 IU/L (0-55)
[2022-09-25] MEDS: BUDESONIDE/FORMOTEROL FUMARATE 80/4.5MCG 6.9 GM INH AEROSOL IH SCH ×2 (07:25→19:55)
[2022-09-25] MEDS: INSULIN LISPRO 100 UNIT/1 ML 3ML VIAL SQ SCH ×4 (07:30→20:54)
[2022-09-25] MEDS: PANTOPRAZOLE SOD 40 MG TABEC PO SCH (07:30)
[2022-09-25 08:15] LABS: BAND NEUTROPHILS % (MANUAL) 2 %; EOSINOPHILS % (MANUAL) 2 % (0-7); LYMPHOCYTES % (MANUAL) 6 % (19-48); MONOCYTES % (MANUAL) 6 % (3.4-9.0); NEUTROPHILS % (MANUAL) 84 % (40-74)
[2022-09-25 08:16] LABS: ANISOCYTOSIS MODERATE; HYPOCHROMASIA SLIGHT; PLATELET ESTIMATE SLIGHTLY DECREASED; PLATELET MORPHOLOGY COMMENT FEW LARGE; RBC MORPHOLOGY COMMENT ABNORMAL
[2022-09-25] MEDS: FUROSEMIDE INJ 10 MG/ML 4 ML VIAL IV SCH (09:06)
[2022-09-25] MEDS: FONDAPARINUX SODIUM 2.5 MG/0.5 ML SYR SQ SCH (09:07)
[2022-09-25] MEDS: POTASSIUM CHLORIDE 20MEQ/100ML 100 ML IV SCH ×2 (09:07→11:07)
[2022-09-25] MEDS: METOPROLOL TARTRATE 50 MG TAB PO SCH ×2 (09:37→16:55)
[2022-09-25] MEDS: LISINOPRIL 20 MG TAB PO SCH ×2 (09:38→16:55)
[2022-09-25] MEDS: NYSTATIN 15 GM POWDER UD BTL TOP SCH ×2 (09:38→16:15)
[2022-09-25] MEDS: CHOLESTYRAMINE 4 GM PACKET PO SCH ×3 (09:54→22:34)
[2022-09-25] MEDS: LOPERAMIDE HCL 2 MG CAP PO PRN ×2 (11:56→16:54)
[2022-09-25] MEDS: SIMVASTATIN 20 MG TAB PO SCH (20:54)
[2022-09-26] VITALS (24 sets, daily range): BP systolic 96–209; BP diastolic 41–144
[2022-09-26] MEDS: IPRATROPIUM/ALBUTEROL SULFATE 4 GM INH INH SCH ×4 (02:25→19:20)
[2022-09-26] MEDS: HYDRALAZINE HCL 20 MG/ML VIAL IV PRN (02:30)
[2022-09-26] MEDS: METRONIDAZOLE 500MG/NS 100ML 100 ML IV SCH ×3 (05:31→22:14)
[2022-09-26] MEDS: VANCOMYCIN HCL 125 MG CAPSULE PO SCH ×4 (05:31→23:25)
[2022-09-26] MEDS: LEVOTHYROXINE SODIUM 75 MCG TAB PO SCH (05:31)
[2022-09-26 06:25] LABS: BASOPHILS # (AUTO) 0.1 (0.0-0.1); BASOPHILS % 0.5 % (0.0-1.0); EOSINOPHILS # (AUTO) 0.4 (0.0-0.4); EOSINOPHILS % 4.8 % (0.0-6.0); HEMATOCRIT 25.5 % (34.2-44.1); HEMOGLOBIN 8.1 g/dL (12.0-16.0); LYMPHOCYTES # (AUTO) 0.7 (1.0-3.2); MEAN CORPUSCULAR HEMOGLOBIN 34.3 pg (28-32); MEAN CORPUSCULAR HGB CONC 31.8 g/dL (31-35); MEAN CORPUSCULAR VOLUME 108.1 fL (81-99); MONOCYTES # (AUTO) 0.7 (0.2-0.8); MONOCYTES % 8.1 % (4.4-11.3); NEUTROPHILS # (AUTO) 7.1 (2.1-6.9); NEUTROPHILS % 78.3 % (38.7-80.0); PLATELET COUNT 165 x10e3/uL (140-360); RED BLOOD COUNT 2.36 x10e6/uL (3.6-5.1); RED CELL DISTRIBUTION WIDTH 18.8 % (11.7-14.4)
[2022-09-26 06:59] LABS: ALBUMIN 3.1 g/dL (3.5-5.0); ALBUMIN/GLOBULIN RATIO 1.2 (0.8-2.0); ALKALINE PHOSPHATASE 42 IU/L (40-150); ANION GAP 15.5 mmol/L (8-16); BLOOD UREA NITROGEN 9 mg/dL (7-26); BUN/CREATININE RATIO 13 (6-25); CALCIUM 8.4 mg/dL (8.4-10.2); CARBON DIOXIDE 26 mmol/L (22-29); CHLORIDE 100 mmol/L (98-107); CREATININE, SERUM 0.72 mg/dL (0.57-1.11); GLUCOSE 133 mg/dL (74-118); POTASSIUM 3.5 mmol/L (3.5-5.1); SODIUM 138 mmol/L (136-145)
[2022-09-26] MEDS: BUDESONIDE/FORMOTEROL FUMARATE 80/4.5MCG 6.9 GM INH AEROSOL IH SCH ×2 (07:00→19:20)
[2022-09-26 07:06] LABS: ALANINE AMINOTRANSFERASE < 6 IU/L (0-55)
[2022-09-26] MEDS: INSULIN LISPRO 100 UNIT/1 ML 3ML VIAL SQ SCH ×4 (07:30→21:00)
[2022-09-26] MEDS: FONDAPARINUX SODIUM 2.5 MG/0.5 ML SYR SQ SCH (08:09)
[2022-09-26] MEDS: ACETAMINOPHEN 325 MG TAB PO PRN (08:10)
[2022-09-26] MEDS: METOPROLOL TARTRATE 50 MG TAB PO SCH ×2 (08:10→16:36)
[2022-09-26] MEDS: LISINOPRIL 20 MG TAB PO SCH ×2 (08:11→16:39)
[2022-09-26] MEDS: NYSTATIN 15 GM POWDER UD BTL TOP SCH ×2 (08:11→16:40)
[2022-09-26] MEDS: CHOLESTYRAMINE 4 GM PACKET PO SCH ×3 (08:11→22:14)
[2022-09-26] MEDS: PANTOPRAZOLE SOD 40 MG TABEC PO SCH (08:11)
[2022-09-26] MEDS ORDERED: FUROSEMIDE INJ 10 MG/ML 4 ML VIAL IV SCH (09:00)
[2022-09-26] MEDS: LOPERAMIDE HCL 2 MG CAP PO PRN (09:50)
[2022-09-26] MEDS: NIFEDIPINE CR 30 MG TAB PO SCH (11:02)
[2022-09-26] MEDS ORDERED: POTASSIUM CHLORIDE 20MEQ/100ML 200 ML IV ONE (14:00)
[2022-09-26] MEDS: FUROSEMIDE INJ 10 MG/ML 4 ML VIAL IV SCH (16:35)
[2022-09-26] MEDS: SIMVASTATIN 20 MG TAB PO SCH (21:22)
[2022-09-27] VITALS (22 sets, daily range): BP systolic 139–180; BP diastolic 41–98
[2022-09-27] MEDS: IPRATROPIUM/ALBUTEROL SULFATE 4 GM INH INH SCH ×4 (02:05→19:40)
[2022-09-27] MEDS: METRONIDAZOLE 500MG/NS 100ML 100 ML IV SCH ×3 (05:30→21:15)
[2022-09-27] MEDS: VANCOMYCIN HCL 125 MG CAPSULE PO SCH ×4 (05:30→23:10)
[2022-09-27] MEDS: LEVOTHYROXINE SODIUM 75 MCG TAB PO SCH (05:31)
[2022-09-27 06:10] LABS: BASOPHILS # (AUTO) 0.1 (0.0-0.1); BASOPHILS % 0.7 % (0.0-1.0); EOSINOPHILS # (AUTO) 0.8 (0.0-0.4); EOSINOPHILS % 9.6 % (0.0-6.0); HEMATOCRIT 24.4 % (34.2-44.1); HEMOGLOBIN 8.2 g/dL (12.0-16.0); LYMPHOCYTES % 11.9 % (18.0-39.1); MEAN CORPUSCULAR HGB CONC 33.6 g/dL (31-35); MEAN CORPUSCULAR VOLUME 101.2 fL (81-99); MONOCYTES # (AUTO) 0.7 (0.2-0.8); NEUTROPHILS # (AUTO) 6.1 (2.1-6.9); NEUTROPHILS % 69.5 % (38.7-80.0); PLATELET COUNT 212 x10e3/uL (140-360); RED BLOOD COUNT 2.41 x10e6/uL (3.6-5.1); RED CELL DISTRIBUTION WIDTH 18.8 % (11.7-14.4)
[2022-09-27 06:33] LABS: ALBUMIN 3.3 g/dL (3.5-5.0); ALBUMIN/GLOBULIN RATIO 1.3 (0.8-2.0); ANION GAP 11.8 mmol/L (8-16); CALCIUM 8.3 mg/dL (8.4-10.2); CREATININE, SERUM 0.74 mg/dL (0.57-1.11); POTASSIUM 3.8 mmol/L (3.5-5.1)
[2022-09-27] MEDS: INSULIN LISPRO 100 UNIT/1 ML 3ML VIAL SQ SCH ×4 (07:30→21:00)
[2022-09-27] MEDS: BUDESONIDE/FORMOTEROL FUMARATE 80/4.5MCG 6.9 GM INH AEROSOL IH SCH ×2 (07:45→19:40)
[2022-09-27] MEDS: LISINOPRIL 20 MG TAB PO SCH ×2 (11:04→17:19)
[2022-09-27] MEDS: PANTOPRAZOLE SOD 40 MG TABEC PO SCH (11:04)
[2022-09-27] MEDS: NIFEDIPINE CR 30 MG TAB PO SCH (11:04)
[2022-09-27] MEDS: METOPROLOL TARTRATE 50 MG TAB PO SCH ×2 (11:05→17:18)
[2022-09-27] MEDS: FUROSEMIDE INJ 10 MG/ML 4 ML VIAL IV SCH ×2 (11:05→17:17)
[2022-09-27] MEDS: NYSTATIN 15 GM POWDER UD BTL TOP SCH ×2 (11:05→17:19)
[2022-09-27] MEDS: FONDAPARINUX SODIUM 2.5 MG/0.5 ML SYR SQ SCH (11:05)
[2022-09-27] MEDS: CHOLESTYRAMINE 4 GM PACKET PO SCH ×3 (11:07→21:15)
[2022-09-27] MEDS: SIMVASTATIN 20 MG TAB PO SCH (21:15)
[2022-09-28] VITALS (25 sets, daily range): BP systolic 97–172; BP diastolic 38–77
[2022-09-28] MEDS: HYDRALAZINE HCL 20 MG/ML VIAL IV PRN (02:20)
[2022-09-28] MEDS: IPRATROPIUM/ALBUTEROL SULFATE 4 GM INH INH SCH ×4 (02:55→18:55)
[2022-09-28] MEDS: VANCOMYCIN HCL 125 MG CAPSULE PO SCH ×3 (05:49→17:01)
[2022-09-28] MEDS: METRONIDAZOLE 500MG/NS 100ML 100 ML IV SCH ×3 (05:49→21:00)
[2022-09-28] MEDS: LEVOTHYROXINE SODIUM 75 MCG TAB PO SCH (05:50)
[2022-09-28] MEDS: BUDESONIDE/FORMOTEROL FUMARATE 80/4.5MCG 6.9 GM INH AEROSOL IH SCH ×2 (06:29→18:55)
[2022-09-28 07:17] LABS: BASOPHILS # (AUTO) 0.1 (0.0-0.1); BASOPHILS % 0.7 % (0.0-1.0); EOSINOPHILS # (AUTO) 0.6 (0.0-0.4); HEMOGLOBIN 7.4 g/dL (12.0-16.0); LYMPHOCYTES # (AUTO) 0.8 (1.0-3.2); LYMPHOCYTES % 11.2 % (18.0-39.1); MEAN CORPUSCULAR HEMOGLOBIN 34.4 pg (28-32); MEAN CORPUSCULAR HGB CONC 33.6 g/dL (31-35); MEAN CORPUSCULAR VOLUME 102.3 fL (81-99); MONOCYTES # (AUTO) 0.6 (0.2-0.8); MONOCYTES % 8.5 % (4.4-11.3); NEUTROPHILS # (AUTO) 4.7 (2.1-6.9); NEUTROPHILS % 70.2 % (38.7-80.0); PLATELET COUNT 198 x10e3/uL (140-360); RED BLOOD COUNT 2.15 x10e6/uL (3.6-5.1); RED CELL DISTRIBUTION WIDTH 18.6 % (11.7-14.4)
[2022-09-28] MEDS: INSULIN LISPRO 100 UNIT/1 ML 3ML VIAL SQ SCH ×4 (07:30→20:15)
[2022-09-28 07:40] LABS: ALBUMIN 2.9 g/dL (3.5-5.0); ALBUMIN/GLOBULIN RATIO 1.2 (0.8-2.0); ANION GAP 12.2 mmol/L (8-16); CALCIUM 8.1 mg/dL (8.4-10.2); CREATININE, SERUM 0.73 mg/dL (0.57-1.11); POTASSIUM 3.2 mmol/L (3.5-5.1)
[2022-09-28] MEDS: PANTOPRAZOLE SOD 40 MG TABEC PO SCH (08:29)
[2022-09-28] MEDS: LISINOPRIL 20 MG TAB PO SCH ×2 (08:29→16:49)
[2022-09-28] MEDS: FONDAPARINUX SODIUM 2.5 MG/0.5 ML SYR SQ SCH (08:29)
[2022-09-28] MEDS: NIFEDIPINE CR 30 MG TAB PO SCH (08:30)
[2022-09-28] MEDS: FUROSEMIDE INJ 10 MG/ML 4 ML VIAL IV SCH ×2 (08:31→16:40)
[2022-09-28] MEDS: METOPROLOL TARTRATE 50 MG TAB PO SCH ×3 (08:31→18:00)
[2022-09-28] MEDS: NYSTATIN 15 GM POWDER UD BTL TOP SCH ×2 (08:31→16:57)
[2022-09-28] MEDS ORDERED: POTASSIUM CHLORIDE 20MEQ/100ML 200 ML IV ONE (09:45)
[2022-09-28] MEDS: CHOLESTYRAMINE 4 GM PACKET PO SCH ×3 (09:55→21:00)
[2022-09-28] MEDS: POTASSIUM CHLORIDE 20MEQ/100ML 100 ML IV SCH ×2 (09:56→11:46)
[2022-09-28] MEDS ORDERED: POTASSIUM CHLORIDE 10MEQ EA PO ONE (10:00)
[2022-09-28] MEDS ORDERED: FLUCONAZOLE 100 MG/NS 50 ML 50 ML IV SCH (12:00)
[2022-09-28] MEDS ORDERED: ACETAMINOPHEN 325 MG TAB PO PRN (15:15)
[2022-09-28] MEDS: LOPERAMIDE HCL 2 MG CAP PO PRN (15:44)
[2022-09-28] MEDS ORDERED: LOPERAMIDE HCL 2 MG CAP PO PRN (15:45)
[2022-09-28] MEDS: SIMVASTATIN 20 MG TAB PO SCH (20:05)
[2022-09-29] VITALS (23 sets, daily range): BP systolic 114–185; BP diastolic 34–95
[2022-09-29] MEDS: IPRATROPIUM/ALBUTEROL SULFATE 4 GM INH INH SCH ×4 (00:05→19:50)
[2022-09-29] MEDS: VANCOMYCIN HCL 125 MG CAPSULE PO SCH ×5 (00:07→23:56)
[2022-09-29] MEDS: LEVOTHYROXINE SODIUM 75 MCG TAB PO SCH (05:15)
[2022-09-29] MEDS: METRONIDAZOLE 500MG/NS 100ML 100 ML IV SCH ×3 (05:15→20:42)
[2022-09-29] MEDS ORDERED: METRONIDAZOLE 500MG/NS 100ML 100 ML IV ONE (05:26)
[2022-09-29 06:38] LABS: BASOPHILS # (AUTO) 0.1 (0.0-0.1); EOSINOPHILS # (AUTO) 0.6 (0.0-0.4); HEMATOCRIT 22.4 % (34.2-44.1); HEMOGLOBIN 7.5 g/dL (12.0-16.0); LYMPHOCYTES # (AUTO) 0.8 (1.0-3.2); LYMPHOCYTES % 13.6 % (18.0-39.1); MEAN CORPUSCULAR HEMOGLOBIN 34.1 pg (28-32); MEAN CORPUSCULAR HGB CONC 33.5 g/dL (31-35); MEAN CORPUSCULAR VOLUME 101.8 fL (81-99); MONOCYTES # (AUTO) 0.5 (0.2-0.8); MONOCYTES % 8.8 % (4.4-11.3); NEUTROPHILS # (AUTO) 3.8 (2.1-6.9); NEUTROPHILS % 65.1 % (38.7-80.0); PLATELET COUNT 176 x10e3/uL (140-360); RED CELL DISTRIBUTION WIDTH 18.1 % (11.7-14.4)
[2022-09-29 06:59] LABS: CALCIUM 8.2 mg/dL (8.4-10.2); CREATININE, SERUM 0.75 mg/dL (0.57-1.11)
[2022-09-29] MEDS: PANTOPRAZOLE SOD 40 MG TABEC PO SCH (07:20)
[2022-09-29] MEDS: INSULIN LISPRO 100 UNIT/1 ML 3ML VIAL SQ SCH ×4 (07:20→21:00)
[2022-09-29] MEDS: BUDESONIDE/FORMOTEROL FUMARATE 80/4.5MCG 6.9 GM INH AEROSOL IH SCH ×2 (07:26→19:50)
[2022-09-29] MEDS: METOPROLOL TARTRATE 50 MG TAB PO SCH ×2 (08:42→17:03)
[2022-09-29] MEDS: NIFEDIPINE CR 30 MG TAB PO SCH ×2 (08:43→17:16)
[2022-09-29] MEDS: LISINOPRIL 20 MG TAB PO SCH ×2 (08:43→17:02)
[2022-09-29] MEDS: FONDAPARINUX SODIUM 2.5 MG/0.5 ML SYR SQ SCH (08:44)
[2022-09-29] MEDS: FUROSEMIDE INJ 10 MG/ML 4 ML VIAL IV SCH ×2 (08:44→17:03)
[2022-09-29] MEDS: NYSTATIN 15 GM POWDER UD BTL TOP SCH ×2 (08:52→17:16)
[2022-09-29] MEDS: LOPERAMIDE HCL 2 MG CAP PO PRN (08:58)
[2022-09-29] MEDS: CHOLESTYRAMINE 4 GM PACKET PO SCH ×3 (10:59→20:43)
[2022-09-29] MEDS: SIMVASTATIN 20 MG TAB PO SCH (20:42)
[2022-09-30] VITALS (8 sets, daily range): BP systolic 126–154; BP diastolic 47–62
[2022-09-30] MEDS: IPRATROPIUM/ALBUTEROL SULFATE 4 GM INH INH SCH ×4 (02:00→19:20)
[2022-09-30] MEDS: LEVOTHYROXINE SODIUM 75 MCG TAB PO SCH (04:58)
[2022-09-30] MEDS: VANCOMYCIN HCL 125 MG CAPSULE PO SCH ×3 (04:58→17:13)
[2022-09-30] MEDS: METRONIDAZOLE 500MG/NS 100ML 100 ML IV SCH ×3 (04:59→21:07)
[2022-09-30] MEDS ORDERED: SODIUM CHLORIDE 0.9% 250ML 250 ML ONE ×2 (05:05→17:20)
[2022-09-30] MEDS: BUDESONIDE/FORMOTEROL FUMARATE 80/4.5MCG 6.9 GM INH AEROSOL IH SCH ×2 (07:10→20:20)
[2022-09-30 07:14] LABS: ANION GAP 13.4 mmol/L (8-16); CALCIUM 7.4 mg/dL (8.4-10.2); CREATININE, SERUM 0.8 mg/dL (0.57-1.11); POTASSIUM 3.4 mmol/L (3.5-5.1)
[2022-09-30 07:19] LABS: BASOPHILS # (AUTO) 0.1 (0.0-0.1); BASOPHILS % 0.8 % (0.0-1.0); EOSINOPHILS # (AUTO) 0.5 (0.0-0.4); EOSINOPHILS % 7.9 % (0.0-6.0); LYMPHOCYTES # (AUTO) 0.8 (1.0-3.2); LYMPHOCYTES % 13.1 % (18.0-39.1); MEAN CORPUSCULAR HEMOGLOBIN 34.2 pg (28-32); MEAN CORPUSCULAR HGB CONC 33.8 g/dL (31-35); MONOCYTES # (AUTO) 0.5 (0.2-0.8); MONOCYTES % 8.2 % (4.4-11.3); NEUTROPHILS # (AUTO) 4.4 (2.1-6.9); NEUTROPHILS % 69.5 % (38.7-80.0); PLATELET COUNT 168 x10e3/uL (140-360); RED BLOOD COUNT 1.99 x10e6/uL (3.6-5.1); RED CELL DISTRIBUTION WIDTH 17.8 % (11.7-14.4)
[2022-09-30 07:27] LABS: HEMATOCRIT 20.1 % (34.2-44.1)
[2022-09-30 07:29] LABS: HEMOGLOBIN 6.8 g/dL (12.0-16.0)
[2022-09-30] MEDS: INSULIN LISPRO 100 UNIT/1 ML 3ML VIAL SQ SCH ×4 (08:50→21:00)
[2022-09-30] MEDS: PANTOPRAZOLE SOD 40 MG TABEC PO SCH (09:05)
[2022-09-30] MEDS: FUROSEMIDE INJ 10 MG/ML 4 ML VIAL IV SCH ×2 (09:05→16:13)
[2022-09-30] MEDS: METOPROLOL TARTRATE 50 MG TAB PO SCH ×2 (09:05→16:13)
[2022-09-30] MEDS: CHOLESTYRAMINE 4 GM PACKET PO SCH ×3 (09:06→21:07)
[2022-09-30] MEDS: NIFEDIPINE CR 30 MG TAB PO SCH ×2 (09:06→16:12)
[2022-09-30] MEDS: LISINOPRIL 20 MG TAB PO SCH ×2 (09:06→16:12)
[2022-09-30] MEDS: NYSTATIN 15 GM POWDER UD BTL TOP SCH ×2 (09:14→16:15)
[2022-09-30] MEDS: FONDAPARINUX SODIUM 2.5 MG/0.5 ML SYR SQ SCH (10:09)
[2022-09-30] MEDS ORDERED: SODIUM CHLORIDE 0.9% 250ML 250 ML IV ONE (11:45)
[2022-09-30] MEDS ORDERED: POTASSIUM CHLORIDE 10MEQ EA PO ONE (14:45)
[2022-09-30] MEDS: SIMVASTATIN 20 MG TAB PO SCH (21:07)
[2022-10-01] VITALS (9 sets, daily range): BP systolic 120–151; BP diastolic 44–70
[2022-10-01] MEDS: IPRATROPIUM/ALBUTEROL SULFATE 4 GM INH INH SCH ×4 (00:59→19:13)
[2022-10-01] MEDS: VANCOMYCIN HCL 125 MG CAPSULE PO SCH ×5 (01:42→23:24)
[2022-10-01] MEDS: LEVOTHYROXINE SODIUM 75 MCG TAB PO SCH (05:54)
[2022-10-01] MEDS: METRONIDAZOLE 500MG/NS 100ML 100 ML IV SCH ×3 (06:28→22:10)
[2022-10-01 06:58] LABS: BASOPHILS # (AUTO) 0.1 (0.0-0.1); BASOPHILS % 0.7 % (0.0-1.0); EOSINOPHILS # (AUTO) 0.6 (0.0-0.4); EOSINOPHILS % 8.7 % (0.0-6.0); HEMATOCRIT 24.9 % (34.2-44.1); HEMOGLOBIN 8.6 g/dL (12.0-16.0); LYMPHOCYTES % 13.2 % (18.0-39.1); MEAN CORPUSCULAR HEMOGLOBIN 34.1 pg (28-32); MEAN CORPUSCULAR HGB CONC 34.5 g/dL (31-35); MEAN CORPUSCULAR VOLUME 98.8 fL (81-99); MONOCYTES # (AUTO) 0.6 (0.2-0.8); MONOCYTES % 8.1 % (4.4-11.3); NEUTROPHILS % 68.9 % (38.7-80.0); PLATELET COUNT 172 x10e3/uL (140-360); RED BLOOD COUNT 2.52 x10e6/uL (3.6-5.1); RED CELL DISTRIBUTION WIDTH 18.2 % (11.7-14.4)
[2022-10-01 07:15] LABS: ANION GAP 14.3 mmol/L (8-16); CALCIUM 7.7 mg/dL (8.4-10.2); CREATININE, SERUM 0.82 mg/dL (0.57-1.11); POTASSIUM 4.3 mmol/L (3.5-5.1)
[2022-10-01] MEDS: BUDESONIDE/FORMOTEROL FUMARATE 80/4.5MCG 6.9 GM INH AEROSOL IH SCH ×2 (07:29→19:13)
[2022-10-01] MEDS: INSULIN LISPRO 100 UNIT/1 ML 3ML VIAL SQ SCH ×4 (07:30→21:00)
[2022-10-01] MEDS: FONDAPARINUX SODIUM 2.5 MG/0.5 ML SYR SQ SCH (08:48)
[2022-10-01] MEDS: CHOLESTYRAMINE 4 GM PACKET PO SCH ×3 (08:49→22:11)
[2022-10-01] MEDS: FUROSEMIDE INJ 10 MG/ML 4 ML VIAL IV SCH ×2 (08:49→17:22)
[2022-10-01] MEDS: METOPROLOL TARTRATE 50 MG TAB PO SCH ×2 (08:49→17:19)
[2022-10-01] MEDS: PANTOPRAZOLE SOD 40 MG TABEC PO SCH (08:50)
[2022-10-01] MEDS: LISINOPRIL 20 MG TAB PO SCH ×2 (08:50→17:20)
[2022-10-01] MEDS: NIFEDIPINE CR 30 MG TAB PO SCH ×2 (08:50→17:20)
[2022-10-01] MEDS: NYSTATIN 15 GM POWDER UD BTL TOP SCH ×2 (08:51→17:20)
[2022-10-01] MEDS: LOPERAMIDE HCL 2 MG CAP PO PRN (08:56)
[2022-10-01] MEDS: SIMVASTATIN 20 MG TAB PO SCH (20:27)
[2022-10-02] VITALS: BP 139/52
[2022-10-02] MEDS: IPRATROPIUM/ALBUTEROL SULFATE 4 GM INH INH SCH ×3 (01:10→13:40)
[2022-10-02 04:00] VITALS: BP 143/43
[2022-10-02] MEDS: METRONIDAZOLE 500MG/NS 100ML 100 ML IV SCH (05:20)
[2022-10-02] MEDS: VANCOMYCIN HCL 125 MG CAPSULE PO SCH ×2 (05:20→12:24)
[2022-10-02] MEDS: LEVOTHYROXINE SODIUM 75 MCG TAB PO SCH (05:20)
[2022-10-02 05:56] LABS: BASOPHILS % 0.6 % (0.0-1.0); EOSINOPHILS # (AUTO) 0.9 (0.0-0.4); EOSINOPHILS % 13.6 % (0.0-6.0); HEMATOCRIT 25.2 % (34.2-44.1); HEMOGLOBIN 8.2 g/dL (12.0-16.0); LYMPHOCYTES # (AUTO) 0.8 (1.0-3.2); LYMPHOCYTES % 13.4 % (18.0-39.1); MEAN CORPUSCULAR HEMOGLOBIN 33.5 pg (28-32); MEAN CORPUSCULAR HGB CONC 32.5 g/dL (31-35); MEAN CORPUSCULAR VOLUME 102.9 fL (81-99); MONOCYTES # (AUTO) 0.6 (0.2-0.8); MONOCYTES % 8.9 % (4.4-11.3); NEUTROPHILS # (AUTO) 3.9 (2.1-6.9); PLATELET COUNT 163 x10e3/uL (140-360); RED BLOOD COUNT 2.45 x10e6/uL (3.6-5.1); RED CELL DISTRIBUTION WIDTH 16.8 % (11.7-14.4)
[2022-10-02 06:25] LABS: ANION GAP 13.7 mmol/L (8-16); CALCIUM 7.6 mg/dL (8.4-10.2); CREATININE, SERUM 0.76 mg/dL (0.57-1.11); MAGNESIUM 1.2 MG/DL (1.3-2.1); POTASSIUM 3.7 mmol/L (3.5-5.1)
[2022-10-02] MEDS: BUDESONIDE/FORMOTEROL FUMARATE 80/4.5MCG 6.9 GM INH AEROSOL IH SCH (07:00)
[2022-10-02] MEDS: INSULIN LISPRO 100 UNIT/1 ML 3ML VIAL SQ SCH ×2 (07:30→11:30)
[2022-10-02 08:10] VITALS: BP 139/47
[2022-10-02 08:12] VITALS: BP 139/47
[2022-10-02] MEDS: PANTOPRAZOLE SOD 40 MG TABEC PO SCH (08:47)
[2022-10-02] MEDS: FUROSEMIDE INJ 10 MG/ML 4 ML VIAL IV SCH (08:47)
[2022-10-02] MEDS: CHOLESTYRAMINE 4 GM PACKET PO SCH (08:47)
[2022-10-02] MEDS: LISINOPRIL 20 MG TAB PO SCH (08:49)
[2022-10-02] MEDS: NIFEDIPINE CR 30 MG TAB PO SCH (08:49)
[2022-10-02] MEDS: METOPROLOL TARTRATE 50 MG TAB PO SCH (08:49)
[2022-10-02] MEDS: FONDAPARINUX SODIUM 2.5 MG/0.5 ML SYR SQ SCH (08:50)
[2022-10-02] MEDS: LOPERAMIDE HCL 2 MG CAP PO PRN (08:54)
[2022-10-02 11:42] VITALS: BP 140/41
[2022-10-02] MEDS ORDERED: BUMETANIDE1 MG PO (11:55)
[2022-10-02] MEDS ORDERED: MAGNESIUM SULFATE 2GM/50ML 50 ML IV ONE (12:00)
== END 2022-10-02 15:13 | disposition home health service (06) | DRG 208 ==
LOC: ER 13:06 → ERHOLD 13:54 → ICU 15:51 → MED/SURG3 09-21 18:09 → ICU 09-23 14:20 → MED/SURG3 09-29 22:03
PROVIDERS: ADMIT Internal Medicine; ATTEND Internal Medicine
PROC: 02HV33Z Insertion of Infusion Device into Superior Vena Cava, Percutaneous Approach (ICD-10-PCS; principal; 2022-09-18)
PROC: 0BH18EZ Insertion of Endotracheal Airway into Trachea, Via Natural or Artificial Opening Endoscopic (ICD-10-PCS; 2022-09-18)
PROC: 5A1935Z Respiratory Ventilation, Less than 24 Consecutive Hours (ICD-10-PCS; 2022-09-18)
PROC: 30233N1 Transfusion of Nonautologous Red Blood Cells into Peripheral Vein, Percutaneous Approach (ICD-10-PCS; 2022-09-18)
PROC: 3E04329 Introduction of Other Anti-infective into Central Vein, Percutaneous Approach (ICD-10-PCS; 2022-09-18)
PROC: 3E04329 Introduction of Other Anti-infective into Central Vein, Percutaneous Approach (ICD-10-PCS; 2022-09-18)
PROC: 3E04329 Introduction of Other Anti-infective into Central Vein, Percutaneous Approach (ICD-10-PCS; 2022-09-18)
PROC: 3E04329 Introduction of Other Anti-infective into Central Vein, Percutaneous Approach (ICD-10-PCS; 2022-09-18)
PROC: 3E04329 Introduction of Other Anti-infective into Central Vein, Percutaneous Approach (ICD-10-PCS; 2022-09-19)
PROC: 3E04329 Introduction of Other Anti-infective into Central Vein, Percutaneous Approach (ICD-10-PCS; 2022-09-19)
PROC: 3E04329 Introduction of Other Anti-infective into Central Vein, Percutaneous Approach (ICD-10-PCS; 2022-09-20)
PROC: 3E04329 Introduction of Other Anti-infective into Central Vein, Percutaneous Approach (ICD-10-PCS; 2022-09-20)
PROC: 3E04329 Introduction of Other Anti-infective into Central Vein, Percutaneous Approach (ICD-10-PCS; 2022-09-21)
PROC: 3E04329 Introduction of Other Anti-infective into Central Vein, Percutaneous Approach (ICD-10-PCS; 2022-09-21)
PROC: 3E04329 Introduction of Other Anti-infective into Central Vein, Percutaneous Approach (ICD-10-PCS; 2022-09-22)
PROC: 0BH18EZ Insertion of Endotracheal Airway into Trachea, Via Natural or Artificial Opening Endoscopic (ICD-10-PCS; 2022-09-23)
PROC: 5A1935Z Respiratory Ventilation, Less than 24 Consecutive Hours (ICD-10-PCS; 2022-09-23)
PROC: 3E04329 Introduction of Other Anti-infective into Central Vein, Percutaneous Approach (ICD-10-PCS; 2022-09-23)
PROC: 5A09357 Assistance with Respiratory Ventilation, Less than 24 Consecutive Hours, Continuous Positive Airway Pressure (ICD-10-PCS; 2022-09-24)
PROC: 3E04329 Introduction of Other Anti-infective into Central Vein, Percutaneous Approach (ICD-10-PCS; 2022-09-24)
PROC: 3E04329 Introduction of Other Anti-infective into Central Vein, Percutaneous Approach (ICD-10-PCS; 2022-09-25)
PROC: 3E04329 Introduction of Other Anti-infective into Central Vein, Percutaneous Approach (ICD-10-PCS; 2022-09-26)
PROC: 3E04329 Introduction of Other Anti-infective into Central Vein, Percutaneous Approach (ICD-10-PCS; 2022-09-27)
PROC: 3E04329 Introduction of Other Anti-infective into Central Vein, Percutaneous Approach (ICD-10-PCS; 2022-09-28)
PROC: 3E04329 Introduction of Other Anti-infective into Central Vein, Percutaneous Approach (ICD-10-PCS; 2022-09-29)
PROC: 3E04329 Introduction of Other Anti-infective into Central Vein, Percutaneous Approach (ICD-10-PCS; 2022-09-30)
PROC: 3E04329 Introduction of Other Anti-infective into Central Vein, Percutaneous Approach (ICD-10-PCS; 2022-10-01)
PROC: 3E04329 Introduction of Other Anti-infective into Central Vein, Percutaneous Approach (ICD-10-PCS; 2022-10-02)
DX: J96.21 Acute and chronic respiratory failure with hypoxia (principal); A41.9 Sepsis, unspecified organism; I50.33 Acute on chronic diastolic (congestive) heart failure; R65.21 Severe sepsis with septic shock; J18.9 Pneumonia, unspecified organism; N39.0 Urinary tract infection, site not specified; D61.818 Other pancytopenia; K52.1 Toxic gastroenteritis and colitis; I13.0 Hypertensive heart and chronic kidney disease with heart failure and stage 1 through stage 4 chronic kidney disease, or unspecified chronic kidney disease; J44.1 Chronic obstructive pulmonary disease with (acute) exacerbation; N18.9 Chronic kidney disease, unspecified; E78.5 Hyperlipidemia, unspecified; E11.22 Type 2 diabetes mellitus with diabetic chronic kidney disease; Z99.81 Dependence on supplemental oxygen; E03.9 Hypothyroidism, unspecified; D46.9 Myelodysplastic syndrome, unspecified; E78.00 Pure hypercholesterolemia, unspecified; I08.2 Rheumatic disorders of both aortic and tricuspid valves; I27.20 Pulmonary hypertension, unspecified; R62.7 Adult failure to thrive; E11.65 Type 2 diabetes mellitus with hyperglycemia; T36.95XA Adverse effect of unspecified systemic antibiotic, initial encounter; Z90.49 Acquired absence of other specified parts of digestive tract; Z90.710 Acquired absence of both cervix and uterus; Z87.891 Personal history of nicotine dependence; Z59.6 Low income; Z79.4 Long term (current) use of insulin; Z79.899 Other long term (current) drug therapy; Z82.49 Family history of ischemic heart disease and other diseases of the circulatory system; Z68.29 Body mass index [BMI] 29.0-29.9, adult; Z83.3 Family history of diabetes mellitus
CPT/HCPCS: 31500; 36415; 36569; 36600; 51700; 70450; 71045; 71260; 74230; 80048; 80053; 81001; 82550; 82553; 82607; 82805; 82948; 83540; 83605; 83735; 83880; 84466; 84484; 85025; 85610; 85730; 86850; 86900; 86920; 87040; 87086; 87324; 87449; 92950; 93005; 93306; 93971; 94003; 94640; 94660; 94664; 94799; 96360; 96372; 99252; 99285; J0330; J0360; J0456; J0692; J0696; J1450; J1652; J1940; J2405; J2543; J3370; J3475; J3480; J7030; J7050; P9016; Q9967

== ENCOUNTER 2022-12-09 22:34 | Inpatient (IN) | payer MEDICARE ==
[~2022-12-09] VITALS: Ht 157.5 cm; Wt 72.6 kg
[~2022-12-09 22:34] MED LIST changes: +BUMETANIDE1 MG PO
[2022-12-09] MEDS ORDERED: ALBUTEROL SULF 0.083% NEB SOLN 3 ML NEB NEB STA (22:37)
[2022-12-09] MEDS ORDERED: METHYLPREDNISOLONE SOD SUCC 125 MG/2ML VIAL IV ONE (22:45)
[2022-12-09] MEDS ORDERED: IPRATROPIUM BROMIDE 0.02% 2.5 ML NEB NEB ONE (22:45)
[2022-12-09] MEDS ORDERED: ASPIRIN 81 MG CHEW TAB PO ONE (22:45)
[2022-12-09 22:53] LABS: BASOPHILS # (AUTO) 0.2 (0.0-0.1); BASOPHILS % 0.7 % (0.0-1.0); EOSINOPHILS # (AUTO) 0.3 (0.0-0.4); EOSINOPHILS % 1.1 % (0.0-6.0); HEMATOCRIT 21.8 % (34.2-44.1); LYMPHOCYTES # (AUTO) 1.5 (1.0-3.2); LYMPHOCYTES % 5.3 % (18.0-39.1); MEAN CORPUSCULAR HEMOGLOBIN 36.1 pg (28-32); MEAN CORPUSCULAR HGB CONC 32.1 g/dL (31-35); MEAN CORPUSCULAR VOLUME 112.4 fL (81-99); MONOCYTES # (AUTO) 2.1 (0.2-0.8); MONOCYTES % 7.7 % (4.4-11.3); NEUTROPHILS # (AUTO) 22.6 (2.1-6.9); NEUTROPHILS % 81.9 % (38.7-80.0); PLATELET COUNT 251 x10e3/uL (140-360); RED BLOOD COUNT 1.94 x10e6/uL (3.6-5.1); RED CELL DISTRIBUTION WIDTH 22.5 % (11.7-14.4)
[2022-12-09 22:56] LABS: HEMOGLOBIN 7.1 g/dL (12.0-16.0)
[2022-12-09 23:15] LABS: ALBUMIN 3.9 g/dL (3.5-5.0); ALBUMIN/GLOBULIN RATIO 1.4 (0.8-2.0); CALCIUM 8.5 mg/dL (8.4-10.2); CREATININE, SERUM 1.23 mg/dL (0.57-1.11)
[2022-12-09 23:17] LABS: B-TYPE NATRIURETIC PEPTIDE2 697.2 pg/mL (0-100)
[2022-12-09 23:21] LABS: CREATINE KINASE MB 1.3 ng/mL (0-5.0)
[2022-12-10] VITALS (43 sets, daily range): BP systolic 84–174; BP diastolic 45–119
[2022-12-10] MEDS ORDERED: GLUCAGON FOR INJ 1 MG VIAL IV ONE
[2022-12-10] MEDS: ALBUTEROL SULF 0.083% NEB SOLN 3 ML NEB NEB SCH ×7 (00:30→23:20)
[2022-12-10] MEDS ORDERED: GLUCAGON FOR INJ 1 MG VIAL IV PRN (00:30)
[2022-12-10] MEDS ORDERED: DEXTROSE 50% SYRINGE 50 ML IV PRN (00:45)
[2022-12-10] MEDS ORDERED: GLUCAGON FOR INJ 1 MG VIAL ONE ×3 (00:58→01:22)
[2022-12-10] MEDS: IPRATROPIUM BROMIDE 0.02% 2.5 ML NEB NEB SCH ×5 (01:51→23:20)
[2022-12-10] MEDS ORDERED: METHYLPREDNISOLONE SOD SUCC 40 MG/ML VIAL 1ML IV SCH (06:00)
[2022-12-10] MEDS ORDERED: FUROSEMIDE INJ 10 MG/ML 2 ML VIAL IV SCH (06:00)
[2022-12-10] MEDS: INSULIN REGULAR, HUMAN 100 UNIT/1 ML SQ SCH ×4 (07:42→20:52)
[2022-12-10] MEDS ORDERED: ALBUTEROL SULFATE HFA 8GM INHALATION AEROSOL INH PRN (08:00)
[2022-12-10 08:44] LABS: BASOPHILS % 0.3 % (0.0-1.0); EOSINOPHILS % 0.1 % (0.0-6.0); HEMOGLOBIN 6.6 g/dL (12.0-16.0); LYMPHOCYTES # (AUTO) 0.4 (1.0-3.2); LYMPHOCYTES % 3.5 % (18.0-39.1); MEAN CORPUSCULAR HEMOGLOBIN 36.5 pg (28-32); MEAN CORPUSCULAR HGB CONC 31.7 g/dL (31-35); MEAN CORPUSCULAR VOLUME 114.9 fL (81-99); MONOCYTES # (AUTO) 0.2 (0.2-0.8); MONOCYTES % 1.9 % (4.4-11.3); NEUTROPHILS # (AUTO) 9.8 (2.1-6.9); NEUTROPHILS % 91.9 % (38.7-80.0); PLATELET COUNT 174 x10e3/uL (140-360); RED BLOOD COUNT 1.81 x10e6/uL (3.6-5.1); RED CELL DISTRIBUTION WIDTH 21.2 % (11.7-14.4)
[2022-12-10 08:50] LABS: HEMATOCRIT 20.8 % (34.2-44.1)
[2022-12-10] MEDS: BUDESONIDE/FORMOTEROL FUMARATE 80/4.5MCG 6.9 GM INH AEROSOL IH SCH ×2 (09:00→17:00)
[2022-12-10] MEDS ORDERED: BUDESONIDE/FORMOTEROL FUMARATE 80/4.5MCG 6.9 GM INH AEROSOL IH SCH (09:00)
[2022-12-10 09:10] LABS: ALBUMIN 3.5 g/dL (3.5-5.0); ALBUMIN/GLOBULIN RATIO 1.3 (0.8-2.0); CALCIUM 8.5 mg/dL (8.4-10.2); CREATININE, SERUM 1.31 mg/dL (0.57-1.11)
[2022-12-10] MEDS: LEVOTHYROXINE SODIUM 75 MCG TAB PO SCH (09:14)
[2022-12-10] MEDS: PANTOPRAZOLE SOD 40 MG TABEC PO SCH (09:14)
[2022-12-10 09:33] LABS: % IRON SATURATION 26 % (15-50); IRON 58 ug/dL (50-170); TOTAL IRON BINDING CAPACITY 227 ug/dL (261-478); TRANSFERRIN 162 mg/dL (180-382)
[2022-12-10 09:46] LABS: CREATINE KINASE MB 5.3 ng/mL (0-5.0)
[2022-12-10 10:48] LABS: BAND NEUTROPHILS % (MANUAL) 2 %; LYMPHOCYTES % (MANUAL) 4 % (19-48); MONOCYTES % (MANUAL) 2 % (3.4-9.0); NEUTROPHILS % (MANUAL) 92 % (40-74)
[2022-12-10 10:49] LABS: PLATELET ESTIMATE ADEQUATE; PLATELET MORPHOLOGY COMMENT NORMAL
[2022-12-10] MEDS ORDERED: CLOPIDOGREL BISULFATE 75 MG TAB PO ONE ×2 (11:15→12:00)
[2022-12-10] MEDS ORDERED: METOLAZONE 5 MG TAB PO ONE ×2 (11:15→12:00)
[2022-12-10] MEDS ORDERED: FUROSEMIDE INJ 10 MG/ML 4 ML VIAL IV ONE (11:15)
[2022-12-10] MEDS ORDERED: VANCOMYCIN 250MG/5ML ORAL SOLN PO SCH (12:00)
[2022-12-10] MEDS ORDERED: SODIUM CHLORIDE 0.9% 250ML 250 ML ONE (12:06)
[2022-12-10] MEDS: VANCOMYCIN HCL 125 MG CAPSULE PO SCH ×3 (12:18→23:26)
[2022-12-10 16:22] LABS: CREATINE KINASE MB 4.2 ng/mL (0-5.0)
[2022-12-10] MEDS: FUROSEMIDE INJ 10 MG/ML 2 ML VIAL IV SCH (17:08)
[2022-12-10] MEDS ORDERED: LOPERAMIDE HCL 2 MG CAP PO PRN (20:30)
[2022-12-10] MEDS: SIMVASTATIN 20 MG TAB PO SCH (20:47)
[2022-12-10] MEDS: METHYLPREDNISOLONE SOD SUCC 40 MG/ML VIAL 1ML IV SCH (20:47)
[2022-12-10] MEDS: TRAZODONE HCL 50 MG TAB PO SCH (20:48)
[2022-12-10] MEDS: INSULIN GLARGINE 100 UNITS/ML VIAL SQ SCH (20:52)
[2022-12-10] MEDS: CLONIDINE HCL 0.1 MG TAB PO PRN (20:55)
[2022-12-11] VITALS (47 sets, daily range): BP systolic 125–185; BP diastolic 43–134
[2022-12-11] MEDS: ALBUTEROL SULF 0.083% NEB SOLN 3 ML NEB NEB SCH ×6 (03:17→23:30)
[2022-12-11] MEDS: VANCOMYCIN HCL 125 MG CAPSULE PO SCH ×4 (05:04→23:15)
[2022-12-11] MEDS: LEVOTHYROXINE SODIUM 75 MCG TAB PO SCH (05:04)
[2022-12-11] MEDS: CLONIDINE HCL 0.1 MG TAB PO PRN ×2 (05:04→23:19)
[2022-12-11] MEDS: FUROSEMIDE INJ 10 MG/ML 2 ML VIAL IV SCH ×2 (05:05→17:33)
[2022-12-11] MEDS: IPRATROPIUM BROMIDE 0.02% 2.5 ML NEB NEB SCH ×4 (06:00→23:30)
[2022-12-11 06:35] LABS: BASOPHILS % 0.1 % (0.0-1.0); LYMPHOCYTES # (AUTO) 0.2 (1.0-3.2); LYMPHOCYTES % 2.2 % (18.0-39.1); MEAN CORPUSCULAR HEMOGLOBIN 35.9 pg (28-32); MEAN CORPUSCULAR HGB CONC 32.8 g/dL (31-35); MEAN CORPUSCULAR VOLUME 109.4 fL (81-99); MONOCYTES # (AUTO) 0.3 (0.2-0.8); MONOCYTES % 3.4 % (4.4-11.3); NEUTROPHILS # (AUTO) 6.8 (2.1-6.9); NEUTROPHILS % 92.9 % (38.7-80.0); RED BLOOD COUNT 1.81 x10e6/uL (3.6-5.1); RED CELL DISTRIBUTION WIDTH 20.4 % (11.7-14.4)
[2022-12-11 06:38] LABS: PLATELET COUNT 90 x10e3/uL (140-360)
[2022-12-11 06:41] LABS: HEMATOCRIT 19.8 % (34.2-44.1); HEMOGLOBIN 6.5 g/dL (12.0-16.0)
[2022-12-11] MEDS ORDERED: SODIUM CHLORIDE 0.9% 250ML 250 ML IV ONE ×2 (06:45→13:15)
[2022-12-11 06:55] LABS: ALBUMIN 3.4 g/dL (3.5-5.0); ALBUMIN/GLOBULIN RATIO 1.5 (0.8-2.0); ANION GAP 16.3 mmol/L (8-16); CALCIUM 8.6 mg/dL (8.4-10.2); CREATININE, SERUM 1.39 mg/dL (0.57-1.11); POTASSIUM 4.3 mmol/L (3.5-5.1)
[2022-12-11 07:30] LABS: CREATINE KINASE MB 3.3 ng/mL (0-5.0)
[2022-12-11] MEDS: INSULIN REGULAR, HUMAN 100 UNIT/1 ML SQ SCH ×4 (08:23→20:48)
[2022-12-11] MEDS: PANTOPRAZOLE SOD 40 MG TABEC PO SCH (09:48)
[2022-12-11] MEDS: ASPIRIN 81 MG ENTERIC COATED PO SCH (09:48)
[2022-12-11] MEDS: CLOPIDOGREL BISULFATE 75 MG TAB PO SCH (09:48)
[2022-12-11] MEDS: METHYLPREDNISOLONE SOD SUCC 40 MG/ML VIAL 1ML IV SCH ×2 (09:50→20:43)
[2022-12-11] MEDS ORDERED: ONDANSETRON HCL INJ 2MG/ML 2ML 2 MG/ML VIAL IV PRN (12:15)
[2022-12-11] MEDS: BUDESONIDE/FORMOTEROL FUMARATE 80/4.5MCG 6.9 GM INH AEROSOL IH SCH ×2 (12:20→19:42)
[2022-12-11] MEDS: NIFEDIPINE CR 30 MG TAB PO SCH (12:35)
[2022-12-11] MEDS: ACETAMINOPHEN 325 MG TAB PO PRN (12:49)
[2022-12-11] MEDS: METOPROLOL TARTRATE 50 MG TAB PO SCH (14:49)
[2022-12-11 19:11] LABS: HEMATOCRIT 27.3 % (34.2-44.1); HEMOGLOBIN 9.1 g/dL (12.0-16.0)
[2022-12-11] MEDS: TRAZODONE HCL 50 MG TAB PO SCH (20:43)
[2022-12-11] MEDS: SIMVASTATIN 20 MG TAB PO SCH (20:43)
[2022-12-11] MEDS: INSULIN GLARGINE 100 UNITS/ML VIAL SQ SCH (20:48)
[2022-12-12] VITALS (46 sets, daily range): BP systolic 135–167; BP diastolic 37–124
[2022-12-12] MEDS: SODIUM CHLORIDE 0.9% 1000ML 1,000 ML IV SCH ×3 (05:33→23:25)
[2022-12-12] MEDS: FUROSEMIDE INJ 10 MG/ML 2 ML VIAL IV SCH (05:34)
[2022-12-12] MEDS: LEVOTHYROXINE SODIUM 75 MCG TAB PO SCH (05:34)
[2022-12-12] MEDS: VANCOMYCIN HCL 125 MG CAPSULE PO SCH ×4 (05:34→23:25)
[2022-12-12 06:38] LABS: HEMATOCRIT 26.6 % (34.2-44.1); LYMPHOCYTES # (AUTO) 0.3 (1.0-3.2); LYMPHOCYTES % 2.3 % (18.0-39.1); MEAN CORPUSCULAR HEMOGLOBIN 34.1 pg (28-32); MEAN CORPUSCULAR HGB CONC 33.8 g/dL (31-35); MEAN CORPUSCULAR VOLUME 100.8 fL (81-99); MONOCYTES # (AUTO) 0.3 (0.2-0.8); MONOCYTES % 2.3 % (4.4-11.3); NEUTROPHILS # (AUTO) 10.8 (2.1-6.9); NEUTROPHILS % 94.4 % (38.7-80.0); PLATELET COUNT 100 x10e3/uL (140-360); RED BLOOD COUNT 2.64 x10e6/uL (3.6-5.1); RED CELL DISTRIBUTION WIDTH 21.2 % (11.7-14.4)
[2022-12-12 07:00] LABS: ALBUMIN 3.4 g/dL (3.5-5.0); ALBUMIN/GLOBULIN RATIO 1.4 (0.8-2.0); ANION GAP 16.6 mmol/L (8-16); CALCIUM 8.8 mg/dL (8.4-10.2); CREATININE, SERUM 1.38 mg/dL (0.57-1.11); POTASSIUM 4.6 mmol/L (3.5-5.1)
[2022-12-12] MEDS: ALBUTEROL SULF 0.083% NEB SOLN 3 ML NEB NEB SCH ×5 (07:00→18:11)
[2022-12-12] MEDS: IPRATROPIUM BROMIDE 0.02% 2.5 ML NEB NEB SCH ×4 (07:30→23:30)
[2022-12-12] MEDS: BUDESONIDE/FORMOTEROL FUMARATE 80/4.5MCG 6.9 GM INH AEROSOL IH SCH ×2 (07:48→18:11)
[2022-12-12 07:52] LABS: ANISOCYTOSIS MODERATE; PLATELET ESTIMATE SLIGHTLY DECREASED; PLATELET MORPHOLOGY COMMENT NORMAL; RBC MORPHOLOGY COMMENT ABNORMAL
[2022-12-12] MEDS: METHYLPREDNISOLONE SOD SUCC 40 MG/ML VIAL 1ML IV SCH ×2 (08:53→21:29)
[2022-12-12] MEDS: NIFEDIPINE CR 30 MG TAB PO SCH (08:53)
[2022-12-12] MEDS: PANTOPRAZOLE SOD 40 MG TABEC PO SCH (08:53)
[2022-12-12] MEDS: METOPROLOL TARTRATE 50 MG TAB PO SCH ×2 (08:54→17:32)
[2022-12-12] MEDS: ASPIRIN 81 MG ENTERIC COATED PO SCH (08:54)
[2022-12-12] MEDS: CLOPIDOGREL BISULFATE 75 MG TAB PO SCH (08:54)
[2022-12-12] MEDS: INSULIN REGULAR, HUMAN 100 UNIT/1 ML SQ SCH ×4 (08:59→21:32)
[2022-12-12] MEDS ORDERED: IOPAMIDOL 370 MG/ML 100 ML INFUS..BTL INJ ONE (09:39)
[2022-12-12] MEDS ORDERED: HEPARIN SOD (PORCINE) 1000 UNIT/ML 30ML ONE (09:39)
[2022-12-12] MEDS ORDERED: HEPARIN SOD/SOD CHLORIDE 2,000 ML ONE (09:39)
[2022-12-12] MEDS ORDERED: LIDOCAINE HCL 2% LOCAL 20 ML VIAL ONE (09:39)
[2022-12-12] MEDS ORDERED: SODIUM CHLORIDE 0.9% 1000ML 1,000 ML ONE (09:39)
[2022-12-12] MEDS ORDERED: NITROGLYCERIN/D5W 200 MCG/ML 250 ML ONE (09:40)
[2022-12-12] MEDS ORDERED: FENTANYL CITRATE/PF 100MCG/2 ML INJ ONE (09:40)
[2022-12-12] MEDS ORDERED: MIDAZOLAM HCL 2 MG/2 ML VIAL ONE (09:40)
[2022-12-12] MEDS ORDERED: VERAPAMIL HCL 2.5 MG/ML 2 ML VIAL ONE (09:40)
[2022-12-12] MEDS: SIMVASTATIN 20 MG TAB PO SCH (21:26)
[2022-12-12] MEDS: TRAZODONE HCL 50 MG TAB PO SCH (21:28)
[2022-12-12] MEDS: INSULIN GLARGINE 100 UNITS/ML VIAL SQ SCH (21:30)
[2022-12-12] MEDS: ACETAMINOPHEN 325 MG TAB PO PRN (21:35)
[2022-12-13] VITALS (28 sets, daily range): BP systolic 62–188; BP diastolic 16–165
[2022-12-13] MEDS: VANCOMYCIN HCL 125 MG CAPSULE PO SCH ×3 (05:51→17:03)
[2022-12-13] MEDS: LEVOTHYROXINE SODIUM 75 MCG TAB PO SCH (05:51)
[2022-12-13] MEDS: IPRATROPIUM BROMIDE 0.02% 2.5 ML NEB NEB SCH ×3 (07:00→19:15)
[2022-12-13] MEDS: ALBUTEROL SULF 0.083% NEB SOLN 3 ML NEB NEB SCH ×7 (07:00→23:51)
[2022-12-13] MEDS: BUDESONIDE/FORMOTEROL FUMARATE 80/4.5MCG 6.9 GM INH AEROSOL IH SCH ×3 (07:17→19:30)
[2022-12-13] MEDS: METHYLPREDNISOLONE SOD SUCC 40 MG/ML VIAL 1ML IV SCH ×2 (08:45→21:50)
[2022-12-13] MEDS: ACETAMINOPHEN 325 MG TAB PO PRN (08:46)
[2022-12-13] MEDS: NIFEDIPINE CR 30 MG TAB PO SCH (08:46)
[2022-12-13] MEDS: PANTOPRAZOLE SOD 40 MG TABEC PO SCH (08:46)
[2022-12-13] MEDS: METOPROLOL TARTRATE 50 MG TAB PO SCH ×2 (08:47→17:03)
[2022-12-13] MEDS: FUROSEMIDE INJ 10 MG/ML 2 ML VIAL IV SCH (08:47)
[2022-12-13] MEDS: INSULIN REGULAR, HUMAN 100 UNIT/1 ML SQ SCH ×4 (08:49→22:09)
[2022-12-13] MEDS: SODIUM CHLORIDE 0.9% 1000ML 1,000 ML IV SCH ×2 (11:21→21:16)
[2022-12-13] MEDS: TRAMADOL HCL 50 MG TAB PO PRN ×2 (11:23→12:17)
[2022-12-13] MEDS: GABAPENTIN 300 MG CAP PO SCH ×2 (13:57→21:57)
[2022-12-13] MEDS: NYSTATIN 15 GM POWDER UD BTL TOP SCH (17:00)
[2022-12-13] MEDS: TRAZODONE HCL 50 MG TAB PO SCH (21:52)
[2022-12-13] MEDS: SIMVASTATIN 20 MG TAB PO SCH (21:52)
[2022-12-13] MEDS: INSULIN GLARGINE 100 UNITS/ML VIAL SQ SCH (22:12)
[2022-12-14] VITALS (22 sets, daily range): BP systolic 120–155; BP diastolic 37–133
[2022-12-14] MEDS: VANCOMYCIN HCL 125 MG CAPSULE PO SCH ×5 (01:10→23:51)
[2022-12-14] MEDS: ALBUTEROL SULF 0.083% NEB SOLN 3 ML NEB NEB SCH ×5 (03:25→19:30)
[2022-12-14] MEDS: LEVOTHYROXINE SODIUM 75 MCG TAB PO SCH (06:22)
[2022-12-14 06:42] LABS: BASOPHILS % 0.1 % (0.0-1.0); EOSINOPHILS % 0.1 % (0.0-6.0); HEMOGLOBIN 8.7 g/dL (12.0-16.0); LYMPHOCYTES # (AUTO) 0.6 (1.0-3.2); LYMPHOCYTES % 4.4 % (18.0-39.1); MEAN CORPUSCULAR HEMOGLOBIN 34.3 pg (28-32); MEAN CORPUSCULAR HGB CONC 33.5 g/dL (31-35); MEAN CORPUSCULAR VOLUME 102.4 fL (81-99); MONOCYTES % 7.2 % (4.4-11.3); NEUTROPHILS # (AUTO) 11.7 (2.1-6.9); NEUTROPHILS % 87.2 % (38.7-80.0); PLATELET COUNT 136 x10e3/uL (140-360); RED BLOOD COUNT 2.54 x10e6/uL (3.6-5.1); RED CELL DISTRIBUTION WIDTH 19.3 % (11.7-14.4)
[2022-12-14] MEDS: INSULIN REGULAR, HUMAN 100 UNIT/1 ML SQ SCH ×4 (07:30→20:51)
[2022-12-14 07:31] LABS: ALBUMIN 3.2 g/dL (3.5-5.0); ALBUMIN/GLOBULIN RATIO 1.5 (0.8-2.0); ANION GAP 13.9 mmol/L (8-16); CALCIUM 8.1 mg/dL (8.4-10.2); CREATININE, SERUM 1.21 mg/dL (0.57-1.11); POTASSIUM 3.9 mmol/L (3.5-5.1)
[2022-12-14] MEDS: IPRATROPIUM BROMIDE 0.02% 2.5 ML NEB NEB SCH ×4 (07:40→19:30)
[2022-12-14] MEDS: ACETAMINOPHEN 325 MG TAB PO PRN ×4 (07:48→16:41)
[2022-12-14] MEDS: GABAPENTIN 300 MG CAP PO SCH ×2 (07:48→20:25)
[2022-12-14] MEDS: TRAMADOL HCL 50 MG TAB PO PRN ×4 (07:49→15:22)
[2022-12-14] MEDS: NIFEDIPINE CR 30 MG TAB PO SCH (07:49)
[2022-12-14] MEDS: METOPROLOL TARTRATE 50 MG TAB PO SCH ×2 (07:50→17:21)
[2022-12-14] MEDS: METHYLPREDNISOLONE SOD SUCC 40 MG/ML VIAL 1ML IV SCH (07:50)
[2022-12-14] MEDS: FUROSEMIDE INJ 10 MG/ML 2 ML VIAL IV SCH (07:50)
[2022-12-14] MEDS: PANTOPRAZOLE SOD 40 MG TABEC PO SCH (07:51)
[2022-12-14] MEDS: NYSTATIN 15 GM POWDER UD BTL TOP SCH ×2 (07:51→17:21)
[2022-12-14] MEDS: BUDESONIDE/FORMOTEROL FUMARATE 80/4.5MCG 6.9 GM INH AEROSOL IH SCH ×2 (08:45→19:30)
[2022-12-14] MEDS: TRAZODONE HCL 50 MG TAB PO SCH (20:25)
[2022-12-14] MEDS: SIMVASTATIN 20 MG TAB PO SCH (20:26)
[2022-12-14] MEDS: INSULIN GLARGINE 100 UNITS/ML VIAL SQ SCH (20:50)
[2022-12-15] VITALS (16 sets, daily range): BP systolic 93–158; BP diastolic 42–80
[2022-12-15] MEDS: ALBUTEROL SULF 0.083% NEB SOLN 3 ML NEB NEB SCH ×5 (00:05→14:07)
[2022-12-15] MEDS: IPRATROPIUM BROMIDE 0.02% 2.5 ML NEB NEB SCH ×3 (00:05→13:45)
[2022-12-15] MEDS: VANCOMYCIN HCL 125 MG CAPSULE PO SCH ×2 (06:12→11:44)
[2022-12-15] MEDS: LEVOTHYROXINE SODIUM 75 MCG TAB PO SCH (06:12)
[2022-12-15 06:53] LABS: BASOPHILS % 0.1 % (0.0-1.0); EOSINOPHILS # (AUTO) 0.1 (0.0-0.4); EOSINOPHILS % 0.4 % (0.0-6.0); HEMATOCRIT 24.7 % (34.2-44.1); HEMOGLOBIN 8.2 g/dL (12.0-16.0); LYMPHOCYTES # (AUTO) 0.7 (1.0-3.2); LYMPHOCYTES % 6.1 % (18.0-39.1); MEAN CORPUSCULAR HEMOGLOBIN 34.2 pg (28-32); MEAN CORPUSCULAR HGB CONC 33.2 g/dL (31-35); MEAN CORPUSCULAR VOLUME 102.9 fL (81-99); MONOCYTES # (AUTO) 0.7 (0.2-0.8); MONOCYTES % 6.5 % (4.4-11.3); NEUTROPHILS # (AUTO) 9.7 (2.1-6.9); NEUTROPHILS % 85.8 % (38.7-80.0); PLATELET COUNT 121 x10e3/uL (140-360); RED CELL DISTRIBUTION WIDTH 18.8 % (11.7-14.4)
[2022-12-15 07:13] LABS: ALBUMIN 3.1 g/dL (3.5-5.0); ALBUMIN/GLOBULIN RATIO 1.5 (0.8-2.0); ANION GAP 12.1 mmol/L (8-16); CREATININE, SERUM 1.12 mg/dL (0.57-1.11); POTASSIUM 4.1 mmol/L (3.5-5.1)
[2022-12-15] MEDS: BUDESONIDE/FORMOTEROL FUMARATE 80/4.5MCG 6.9 GM INH AEROSOL IH SCH (07:25)
[2022-12-15] MEDS: METOPROLOL TARTRATE 50 MG TAB PO SCH (07:56)
[2022-12-15] MEDS: NIFEDIPINE CR 30 MG TAB PO SCH (07:56)
[2022-12-15] MEDS: PANTOPRAZOLE SOD 40 MG TABEC PO SCH (07:56)
[2022-12-15] MEDS: GABAPENTIN 300 MG CAP PO SCH (07:56)
[2022-12-15] MEDS: FUROSEMIDE INJ 10 MG/ML 2 ML VIAL IV SCH (07:57)
[2022-12-15] MEDS ORDERED: METHYLPREDNISOLONE SOD SUCC 40 MG/ML VIAL 1ML IV SCH (08:00)
[2022-12-15] MEDS: INSULIN REGULAR, HUMAN 100 UNIT/1 ML SQ SCH ×2 (08:20→11:46)
[2022-12-15] MEDS: NYSTATIN 15 GM POWDER UD BTL TOP SCH (08:21)
[2022-12-15] MEDS ORDERED: PREDNISONE20 MG PO (12:11)
[2022-12-16] MEDS ORDERED: METHYLPREDNISOLONE SOD SUCC 40 MG/ML VIAL 1ML IV SCH (09:00)
== END 2022-12-15 14:18 | disposition home health service (06) | DRG 280 ==
LOC: ER 22:35 → ERHOLD 12-10 00:35 → ICU 12-10 01:39
PROVIDERS: ADMIT Internal Medicine; ATTEND Internal Medicine
PROC: 02HV33Z Insertion of Infusion Device into Superior Vena Cava, Percutaneous Approach (ICD-10-PCS; principal; 2022-12-10)
PROC: 5A09357 Assistance with Respiratory Ventilation, Less than 24 Consecutive Hours, Continuous Positive Airway Pressure (ICD-10-PCS; 2022-12-10)
PROC: 4A023N7 Measurement of Cardiac Sampling and Pressure, Left Heart, Percutaneous Approach (ICD-10-PCS; 2022-12-10)
PROC: B2111ZZ Fluoroscopy of Multiple Coronary Arteries using Low Osmolar Contrast (ICD-10-PCS; 2022-12-10)
PROC: B3101ZZ Fluoroscopy of Thoracic Aorta using Low Osmolar Contrast (ICD-10-PCS; 2022-12-10)
PROC: B2151ZZ Fluoroscopy of Left Heart using Low Osmolar Contrast (ICD-10-PCS; 2022-12-10)
DX: I13.0 Hypertensive heart and chronic kidney disease with heart failure and stage 1 through stage 4 chronic kidney disease, or unspecified chronic kidney disease (principal); I50.33 Acute on chronic diastolic (congestive) heart failure; I21.A1 Myocardial infarction type 2; E87.20 Acidosis, unspecified; J44.1 Chronic obstructive pulmonary disease with (acute) exacerbation; N17.9 Acute kidney failure, unspecified; I10 Essential (primary) hypertension; R77.8 Other specified abnormalities of plasma proteins; D46.9 Myelodysplastic syndrome, unspecified; E03.9 Hypothyroidism, unspecified; E78.00 Pure hypercholesterolemia, unspecified; E11.9 Type 2 diabetes mellitus without complications; E11.22 Type 2 diabetes mellitus with diabetic chronic kidney disease; N18.30 Chronic kidney disease, stage 3 unspecified; D63.8 Anemia in other chronic diseases classified elsewhere; Z20.822 Contact with and (suspected) exposure to COVID-19
CPT/HCPCS: 36415; 36569; 71045; 80053; 82550; 82553; 82948; 83540; 83605; 83880; 84466; 84484; 85014; 85018; 85025; 86850; 86900; 86920; 87040; 93005; 93306; 93458; 93880; 94640; 94660; 94799; 96372; 99153; 99252; 99284; C1887; J0696; J1610; J1644; J1815; J1940; J2001; J2250; J2920; J2930; J7030; J7050; P9016; Q9967

== ENCOUNTER 2022-12-18 03:02 | Inpatient (IN) | payer MEDICARE ==
[~2022-12-18] VITALS: Ht 157.5 cm; Wt 83.1 kg
[2022-12-18 04:01] LABS: BASOPHILS % 0.2 % (0.0-1.0); EOSINOPHILS # (AUTO) 0.6 (0.0-0.4); EOSINOPHILS % 4.3 % (0.0-6.0); HEMATOCRIT 26.7 % (34.2-44.1); HEMOGLOBIN 8.6 g/dL (12.0-16.0); LYMPHOCYTES # (AUTO) 0.8 (1.0-3.2); LYMPHOCYTES % 5.7 % (18.0-39.1); MEAN CORPUSCULAR HEMOGLOBIN 33.9 pg (28-32); MEAN CORPUSCULAR HGB CONC 32.2 g/dL (31-35); MEAN CORPUSCULAR VOLUME 105.1 fL (81-99); MONOCYTES % 6.7 % (4.4-11.3); NEUTROPHILS # (AUTO) 11.8 (2.1-6.9); NEUTROPHILS % 80.8 % (38.7-80.0); PLATELET COUNT 147 x10e3/uL (140-360); RED BLOOD COUNT 2.54 x10e6/uL (3.6-5.1); RED CELL DISTRIBUTION WIDTH 19.2 % (11.7-14.4)
[2022-12-18 04:19] LABS: ALBUMIN 3.7 g/dL (3.5-5.0); ALBUMIN/GLOBULIN RATIO 1.5 (0.8-2.0); ANION GAP 14.3 mmol/L (8-16); CALCIUM 8.8 mg/dL (8.4-10.2); CREATININE, SERUM 0.95 mg/dL (0.57-1.11); POTASSIUM 4.3 mmol/L (3.5-5.1)
[2022-12-18] MEDS ORDERED: IOPAMIDOL 370 MG/ML 100 ML INFUS..BTL INJ ONE (07:20)
[2022-12-18] MEDS: ENOXAPARIN INJ 80 MG/0.8 ML SYR SC SCH ×2 (07:21→21:14)
[2022-12-18] MEDS ORDERED: ONDANSETRON HCL 4 MG ORAL DISINTEGRATING TAB PO PRN (10:45)
[2022-12-18] MEDS ORDERED: DEXTROSE 50% SYRINGE 50 ML IV PRN (12:00)
[2022-12-18] MEDS: ACETAMINOPHEN 325 MG TAB PO PRN (14:30)
[2022-12-18] MEDS: HYDROCODONE/APAP 7.5MG-325MG 1 EA TAB PO PRN (16:49)
[2022-12-18] MEDS: METOPROLOL TARTRATE 50 MG TAB PO SCH (16:54)
[2022-12-18] MEDS: INSULIN REGULAR, HUMAN 100 UNIT/1 ML SQ SCH ×2 (16:57→21:00)
[2022-12-18] MEDS ORDERED: BUMETANIDE 1 MG TAB PO SCH (17:00)
[2022-12-18 17:50] VITALS: BP 161/53
[2022-12-18 18:00] VITALS: BP 161/53
[2022-12-18 18:04] VITALS: BP 161/53
[2022-12-18] MEDS: BUDESONIDE/FORMOTEROL FUMARATE 80/4.5MCG 6.9 GM INH AEROSOL IH SCH (19:00)
[2022-12-18] MEDS ORDERED: METOLAZONE 5 MG TAB PO ONE (19:10)
[2022-12-18 20:00] VITALS: BP 155/56
[2022-12-18] MEDS: ALBUTEROL SULFATE HFA 8GM INHALATION AEROSOL INH PRN ×2 (20:01→23:35)
[2022-12-18] MEDS: FUROSEMIDE INJ 10 MG/ML 4 ML VIAL IV SCH (21:14)
[2022-12-18] MEDS: TRAZODONE HCL 50 MG TAB PO SCH (21:14)
[2022-12-18] MEDS: INSULIN GLARGINE 100 UNITS/ML VIAL SQ SCH (21:19)
[2022-12-19] VITALS (9 sets, daily range): BP systolic 156–188; BP diastolic 46–62
[2022-12-19] MEDS: LEVOTHYROXINE SODIUM 75 MCG TAB PO SCH (05:18)
[2022-12-19 06:48] LABS: BASOPHILS % 0.1 % (0.0-1.0); EOSINOPHILS # (AUTO) 0.3 (0.0-0.4); EOSINOPHILS % 3.3 % (0.0-6.0); HEMATOCRIT 22.6 % (34.2-44.1); HEMOGLOBIN 7.4 g/dL (12.0-16.0); LYMPHOCYTES # (AUTO) 0.6 (1.0-3.2); LYMPHOCYTES % 6.9 % (18.0-39.1); MEAN CORPUSCULAR HEMOGLOBIN 34.7 pg (28-32); MEAN CORPUSCULAR HGB CONC 32.7 g/dL (31-35); MEAN CORPUSCULAR VOLUME 106.1 fL (81-99); MONOCYTES # (AUTO) 0.5 (0.2-0.8); MONOCYTES % 6.3 % (4.4-11.3); NEUTROPHILS % 82.3 % (38.7-80.0); PLATELET COUNT 114 x10e3/uL (140-360); RED BLOOD COUNT 2.13 x10e6/uL (3.6-5.1); RED CELL DISTRIBUTION WIDTH 18.6 % (11.7-14.4)
[2022-12-19] MEDS: BUDESONIDE/FORMOTEROL FUMARATE 80/4.5MCG 6.9 GM INH AEROSOL IH SCH ×2 (07:00→19:55)
[2022-12-19 07:24] LABS: ALBUMIN 2.9 g/dL (3.5-5.0); ALBUMIN/GLOBULIN RATIO 1.5 (0.8-2.0); ANION GAP 13.2 mmol/L (8-16); CALCIUM 8.5 mg/dL (8.4-10.2); CREATININE, SERUM 0.86 mg/dL (0.57-1.11); POTASSIUM 4.2 mmol/L (3.5-5.1)
[2022-12-19] MEDS ORDERED: NON-FORMULARY MEDICATION (Levothyroxine Sodium (Tirosint) 75 MCG) PO SCH (09:00)
[2022-12-19] MEDS ORDERED: BUMETANIDE 1 MG TAB PO SCH (09:00)
[2022-12-19] MEDS: PANTOPRAZOLE SOD 40 MG TABEC PO SCH (09:04)
[2022-12-19] MEDS: METOPROLOL TARTRATE 50 MG TAB PO SCH ×2 (09:04→16:47)
[2022-12-19] MEDS: PREDNISONE 20 MG TAB PO SCH (09:04)
[2022-12-19] MEDS: LORATADINE 10 MG TAB PO SCH (09:04)
[2022-12-19] MEDS: ENOXAPARIN INJ 80 MG/0.8 ML SYR SC SCH ×2 (09:05→20:57)
[2022-12-19] MEDS: ACETAMINOPHEN 325 MG TAB PO PRN (09:05)
[2022-12-19] MEDS: FUROSEMIDE INJ 10 MG/ML 4 ML VIAL IV SCH (09:12)
[2022-12-19] MEDS: INSULIN REGULAR, HUMAN 100 UNIT/1 ML SQ SCH ×4 (09:46→21:00)
[2022-12-19] MEDS ORDERED: MAGNESIUM OXID400 MG PO (10:40)
[2022-12-19] MEDS ORDERED: DIOVAN160 MG PO (10:43)
[2022-12-19] MEDS ORDERED: ATORVASTATIN CA10 MG PO (10:43)
[2022-12-19] MEDS ORDERED: LOSARTAN POTASS25 MG PO (10:43)
[2022-12-19] MEDS ORDERED: BUMETANIDE1 MG PO (10:43)
[2022-12-19] MEDS: FUROSEMIDE INJ 10 MG/ML 2 ML VIAL IV SCH (16:40)
[2022-12-19] MEDS: CLONIDINE HCL 0.1 MG TAB PO PRN ×2 (16:41→21:05)
[2022-12-19] MEDS: SIMVASTATIN 20 MG TAB PO SCH (20:57)
[2022-12-19] MEDS: TRAZODONE HCL 50 MG TAB PO SCH (20:57)
[2022-12-19] MEDS: HYDROCODONE/APAP 7.5MG-325MG 1 EA TAB PO PRN (20:58)
[2022-12-19] MEDS: INSULIN GLARGINE 100 UNITS/ML VIAL SQ SCH (21:09)
[2022-12-20] VITALS (8 sets, daily range): BP systolic 138–175; BP diastolic 35–90
[2022-12-20] MEDS: HYDROCODONE/APAP 7.5MG-325MG 1 EA TAB PO PRN ×2 (01:55→18:19)
[2022-12-20] MEDS: LEVOTHYROXINE SODIUM 75 MCG TAB PO SCH (05:41)
[2022-12-20 06:20] LABS: BASOPHILS % 0.2 % (0.0-1.0); EOSINOPHILS # (AUTO) 0.1 (0.0-0.4); EOSINOPHILS % 1.4 % (0.0-6.0); LYMPHOCYTES # (AUTO) 0.7 (1.0-3.2); MEAN CORPUSCULAR HEMOGLOBIN 34.6 pg (28-32); MEAN CORPUSCULAR HGB CONC 32.7 g/dL (31-35); MEAN CORPUSCULAR VOLUME 105.9 fL (81-99); MONOCYTES # (AUTO) 0.4 (0.2-0.8); MONOCYTES % 7.1 % (4.4-11.3); NEUTROPHILS # (AUTO) 4.3 (2.1-6.9); NEUTROPHILS % 78.4 % (38.7-80.0); RED BLOOD COUNT 1.88 x10e6/uL (3.6-5.1); RED CELL DISTRIBUTION WIDTH 17.9 % (11.7-14.4)
[2022-12-20 06:24] LABS: HEMATOCRIT 19.9 % (34.2-44.1); HEMOGLOBIN 6.5 g/dL (12.0-16.0); PLATELET COUNT 93 x10e3/uL (140-360)
[2022-12-20] MEDS ORDERED: SODIUM CHLORIDE 0.9% 250ML 250 ML IV ONE (07:00)
[2022-12-20] MEDS: INSULIN REGULAR, HUMAN 100 UNIT/1 ML SQ SCH ×4 (07:30→21:27)
[2022-12-20] MEDS: ENOXAPARIN INJ 80 MG/0.8 ML SYR SC SCH (08:20)
[2022-12-20] MEDS: FUROSEMIDE INJ 10 MG/ML 2 ML VIAL IV SCH ×2 (08:20→17:27)
[2022-12-20] MEDS: PREDNISONE 20 MG TAB PO SCH (08:21)
[2022-12-20] MEDS: NIFEDIPINE CR 30 MG TAB PO SCH (08:21)
[2022-12-20] MEDS: METOPROLOL TARTRATE 50 MG TAB PO SCH ×2 (08:22→17:28)
[2022-12-20] MEDS: LORATADINE 10 MG TAB PO SCH (08:22)
[2022-12-20] MEDS: PANTOPRAZOLE SOD 40 MG TABEC PO SCH (08:22)
[2022-12-20] MEDS ORDERED: SODIUM CHLORIDE 0.9% 250ML 250 ML ONE (10:21)
[2022-12-20] MEDS: BUDESONIDE/FORMOTEROL FUMARATE 80/4.5MCG 6.9 GM INH AEROSOL IH SCH (19:57)
[2022-12-20] MEDS: TRAZODONE HCL 50 MG TAB PO SCH (21:20)
[2022-12-20] MEDS: SIMVASTATIN 20 MG TAB PO SCH (21:20)
[2022-12-20] MEDS: ENOXAPARIN SOD INJ 60 MG/0.6 ML SYR SC SCH (21:21)
[2022-12-20] MEDS: INSULIN GLARGINE 100 UNITS/ML VIAL SQ SCH (21:27)
[2022-12-21] VITALS (9 sets, daily range): BP systolic 129–173; BP diastolic 51–67
[2022-12-21] MEDS: LEVOTHYROXINE SODIUM 75 MCG TAB PO SCH (05:44)
[2022-12-21 06:20] LABS: BASOPHILS % 0.1 % (0.0-1.0); EOSINOPHILS # (AUTO) 0.1 (0.0-0.4); EOSINOPHILS % 1.3 % (0.0-6.0); HEMATOCRIT 24.7 % (34.2-44.1); HEMOGLOBIN 8.2 g/dL (12.0-16.0); LYMPHOCYTES # (AUTO) 0.9 (1.0-3.2); LYMPHOCYTES % 13.1 % (18.0-39.1); MEAN CORPUSCULAR HEMOGLOBIN 33.2 pg (28-32); MEAN CORPUSCULAR HGB CONC 33.2 g/dL (31-35); MONOCYTES # (AUTO) 0.5 (0.2-0.8); MONOCYTES % 7.5 % (4.4-11.3); NEUTROPHILS # (AUTO) 5.4 (2.1-6.9); NEUTROPHILS % 77.1 % (38.7-80.0); PLATELET COUNT 98 x10e3/uL (140-360); RED BLOOD COUNT 2.47 x10e6/uL (3.6-5.1); RED CELL DISTRIBUTION WIDTH 19.6 % (11.7-14.4)
[2022-12-21] MEDS: BUDESONIDE/FORMOTEROL FUMARATE 80/4.5MCG 6.9 GM INH AEROSOL IH SCH ×2 (06:33→18:55)
[2022-12-21] MEDS: INSULIN REGULAR, HUMAN 100 UNIT/1 ML SQ SCH ×4 (07:30→20:53)
[2022-12-21] MEDS: PANTOPRAZOLE SOD 40 MG TABEC PO SCH (08:50)
[2022-12-21] MEDS: FUROSEMIDE INJ 10 MG/ML 2 ML VIAL IV SCH ×2 (08:50→17:23)
[2022-12-21] MEDS: NIFEDIPINE CR 30 MG TAB PO SCH (08:50)
[2022-12-21] MEDS: LORATADINE 10 MG TAB PO SCH (08:51)
[2022-12-21] MEDS: METOPROLOL TARTRATE 50 MG TAB PO SCH ×2 (08:51→17:23)
[2022-12-21] MEDS: PREDNISONE 20 MG TAB PO SCH (08:51)
[2022-12-21] MEDS: ENOXAPARIN SOD INJ 60 MG/0.6 ML SYR SC SCH (08:51)
[2022-12-21] MEDS: APIXABAN 5 MG TABLET PO SCH (17:22)
[2022-12-21] MEDS: SIMVASTATIN 20 MG TAB PO SCH (20:48)
[2022-12-21] MEDS: TRAZODONE HCL 50 MG TAB PO SCH (20:49)
[2022-12-21] MEDS: HYDROCODONE/APAP 7.5MG-325MG 1 EA TAB PO PRN (20:49)
[2022-12-21] MEDS: INSULIN GLARGINE 100 UNITS/ML VIAL SQ SCH (20:52)
[2022-12-22] VITALS (7 sets, daily range): BP systolic 131–166; BP diastolic 49–71
[2022-12-22 02:44] LABS: % IRON SATURATION 74 % (15-50); IRON 127 ug/dL (50-170); TOTAL IRON BINDING CAPACITY 172 ug/dL (261-478); TRANSFERRIN 123 mg/dL (180-382)
[2022-12-22] MEDS: LEVOTHYROXINE SODIUM 75 MCG TAB PO SCH (05:49)
[2022-12-22 05:55] LABS: BASOPHILS % 0.1 % (0.0-1.0); EOSINOPHILS # (AUTO) 0.1 (0.0-0.4); EOSINOPHILS % 0.7 % (0.0-6.0); HEMATOCRIT 23.5 % (34.2-44.1); HEMOGLOBIN 7.9 g/dL (12.0-16.0); LYMPHOCYTES # (AUTO) 0.8 (1.0-3.2); LYMPHOCYTES % 11.3 % (18.0-39.1); MEAN CORPUSCULAR HEMOGLOBIN 32.5 pg (28-32); MEAN CORPUSCULAR HGB CONC 33.6 g/dL (31-35); MONOCYTES # (AUTO) 0.7 (0.2-0.8); MONOCYTES % 9.3 % (4.4-11.3); NEUTROPHILS # (AUTO) 5.5 (2.1-6.9); NEUTROPHILS % 77.9 % (38.7-80.0); PLATELET COUNT 98 x10e3/uL (140-360); RED BLOOD COUNT 2.43 x10e6/uL (3.6-5.1); RED CELL DISTRIBUTION WIDTH 18.9 % (11.7-14.4)
[2022-12-22 06:02] LABS: INR 1.44; PROTHROMBIN TIME 18.1 seconds (11.9-14.5)
[2022-12-22 06:07] LABS: MEAN CORPUSCULAR VOLUME 96.7 fL (81-99)
[2022-12-22 06:25] LABS: ALBUMIN 3.2 g/dL (3.5-5.0); ALBUMIN/GLOBULIN RATIO 1.5 (0.8-2.0); ANION GAP 12.8 mmol/L (8-16); CALCIUM 8.7 mg/dL (8.4-10.2); CREATININE, SERUM 0.96 mg/dL (0.57-1.11); POTASSIUM 3.8 mmol/L (3.5-5.1)
[2022-12-22] MEDS: BUDESONIDE/FORMOTEROL FUMARATE 80/4.5MCG 6.9 GM INH AEROSOL IH SCH ×2 (06:46→19:48)
[2022-12-22] MEDS: INSULIN REGULAR, HUMAN 100 UNIT/1 ML SQ SCH ×4 (07:30→21:43)
[2022-12-22] MEDS ORDERED: IOPAMIDOL 370 MG/ML 100 ML INFUS..BTL INJ ONE (07:50)
[2022-12-22] MEDS ORDERED: SODIUM CHLORIDE 0.9% 100 ML ONE (07:50)
[2022-12-22] MEDS: FUROSEMIDE INJ 10 MG/ML 2 ML VIAL IV SCH ×2 (09:02→17:59)
[2022-12-22] MEDS: PANTOPRAZOLE SOD 40 MG TABEC PO SCH (09:03)
[2022-12-22] MEDS: NIFEDIPINE CR 30 MG TAB PO SCH (09:03)
[2022-12-22] MEDS: LORATADINE 10 MG TAB PO SCH (09:03)
[2022-12-22] MEDS: PREDNISONE 20 MG TAB PO SCH (09:03)
[2022-12-22] MEDS: APIXABAN 5 MG TABLET PO SCH ×2 (09:03→17:59)
[2022-12-22] MEDS: HYDROCORTISONE ACETATE 25 MG/SUPP.RECT SUPP RC SCH ×2 (09:04→17:59)
[2022-12-22] MEDS: METOPROLOL TARTRATE 50 MG TAB PO SCH ×2 (09:04→17:59)
[2022-12-22] MEDS: TRAZODONE HCL 50 MG TAB PO SCH (21:37)
[2022-12-22] MEDS: SIMVASTATIN 20 MG TAB PO SCH (21:37)
[2022-12-22] MEDS: INSULIN GLARGINE 100 UNITS/ML VIAL SQ SCH (21:44)
[2022-12-22] MEDS ORDERED: SODIUM CHLORIDE 0.9% 250ML 250 ML ONE (21:59)
[2022-12-23] MEDS ORDERED: CYANOCOBALAMIN INJ 1,000 MCG/ML VIAL IM ONE (00:15)
[2022-12-23 05:17] VITALS: BP 170/68
[2022-12-23 05:18] VITALS: BP 170/68
[2022-12-23] MEDS: LEVOTHYROXINE SODIUM 75 MCG TAB PO SCH (06:00)
[2022-12-23 08:10] VITALS: BP 182/55
[2022-12-23] MEDS: LORATADINE 10 MG TAB PO SCH (08:25)
[2022-12-23] MEDS: FUROSEMIDE INJ 10 MG/ML 2 ML VIAL IV SCH (08:25)
[2022-12-23] MEDS: APIXABAN 5 MG TABLET PO SCH (08:26)
[2022-12-23] MEDS: METOPROLOL TARTRATE 50 MG TAB PO SCH (08:26)
[2022-12-23] MEDS: NIFEDIPINE CR 30 MG TAB PO SCH (08:27)
[2022-12-23] MEDS: HYDROCORTISONE ACETATE 25 MG/SUPP.RECT SUPP RC SCH (08:27)
[2022-12-23] MEDS: PANTOPRAZOLE SOD 40 MG TABEC PO SCH (08:27)
[2022-12-23] MEDS: INSULIN REGULAR, HUMAN 100 UNIT/1 ML SQ SCH (08:31)
[2022-12-23 08:53] VITALS: BP 182/55
[2022-12-23] MEDS ORDERED: CYANOCOBALAMIN INJ 1,000 MCG/ML VIAL IM SCH (09:00)
[2022-12-23] MEDS ORDERED: PREDNISONE 10 MG TAB PO SCH (09:00)
[2022-12-23] MEDS ORDERED: LOSARTAN POTASSIUM 100 MG TAB PO SCH (10:15)
[2022-12-23] MEDS ORDERED: INSULIN LISPRO 100 UNIT/1 ML 3ML VIAL SQ SCH (11:30)
[2022-12-23] MEDS ORDERED: ELIQUIS5 MG PO (11:40)
[2022-12-23] MEDS ORDERED: ANUCORT-HC25 MG RC (11:40)
[2022-12-23 12:25] VITALS: BP 153/48
== END 2022-12-23 12:59 | disposition home or self-care (01) | DRG 176 ==
LOC: ER 03:09 → ERHOLD 07:07 → MED/SURG3 17:42
PROVIDERS: ADMIT Internal Medicine; ATTEND Internal Medicine
DX: I26.99 Other pulmonary embolism without acute cor pulmonale (principal); I50.32 Chronic diastolic (congestive) heart failure; K62.5 Hemorrhage of anus and rectum; J44.9 Chronic obstructive pulmonary disease, unspecified; I11.0 Hypertensive heart disease with heart failure; E11.9 Type 2 diabetes mellitus without complications; E03.9 Hypothyroidism, unspecified; D46.9 Myelodysplastic syndrome, unspecified; D50.0 Iron deficiency anemia secondary to blood loss (chronic); K62.89 Other specified diseases of anus and rectum
CPT/HCPCS: 36415; 71045; 71260; 74174; 80053; 82607; 82746; 82948; 83540; 83880; 84466; 84484; 85014; 85025; 85045; 85610; 86850; 86900; 86920; 87400; 93005; 93970; 94664; 94799; 99252; 99285; J0696; J1650; J1815; J1940; J3420; J7050; J7512; P9016; Q9967

== ENCOUNTER 2023-01-10 10:01 | Emergency (ER) | payer MEDICARE ==
[~2023-01-10] VITALS: Ht 157.5 cm; Wt 83.0 kg
[~2023-01-10 10:01] MED LIST changes: +ANUCORT-HC25 MG RC; +ATORVASTATIN CA10 MG PO; +DIOVAN160 MG PO; +ELIQUIS5 MG PO; +LOSARTAN POTASS25 MG PO; +MAGNESIUM OXID400 MG PO
[2023-01-10 10:47] VITALS: O2SAT 100
[2023-01-10 11:26] LABS: BASOPHILS % 0.3 % (0.0-1.0); EOSINOPHILS # (AUTO) 0.1 (0.0-0.4); EOSINOPHILS % 1.5 % (0.0-6.0); HEMOGLOBIN 7.2 g/dL (12.0-16.0); LYMPHOCYTES # (AUTO) 0.8 (1.0-3.2); LYMPHOCYTES % 12.8 % (18.0-39.1); MEAN CORPUSCULAR HEMOGLOBIN 32.7 pg (28-32); MEAN CORPUSCULAR HGB CONC 32.6 g/dL (31-35); MEAN CORPUSCULAR VOLUME 100.5 fL (81-99); MONOCYTES # (AUTO) 0.7 (0.2-0.8); MONOCYTES % 10.7 % (4.4-11.3); NEUTROPHILS # (AUTO) 4.6 (2.1-6.9); NEUTROPHILS % 74.1 % (38.7-80.0); PLATELET COUNT 130 x10e3/uL (140-360); RED CELL DISTRIBUTION WIDTH 18.7 % (11.7-14.4)
[2023-01-10 11:33] LABS: HEMATOCRIT 22.1 % (34.2-44.1)
[2023-01-10 11:55] LABS: ALBUMIN 3.8 g/dL (3.5-5.0); ALBUMIN/GLOBULIN RATIO 1.5 (0.8-2.0); ANION GAP 12.9 mmol/L (8-16); CALCIUM 8.8 mg/dL (8.4-10.2); CREATININE, SERUM 0.99 mg/dL (0.57-1.11); POTASSIUM 3.9 mmol/L (3.5-5.1)
== END 2023-01-10 12:13 | disposition home or self-care (01) ==
LOC: ER 10:12
DX: D64.9 Anemia, unspecified (principal); E11.65 Type 2 diabetes mellitus with hyperglycemia; I10 Essential (primary) hypertension; J44.9 Chronic obstructive pulmonary disease, unspecified; I50.9 Heart failure, unspecified; E03.9 Hypothyroidism, unspecified
CPT/HCPCS: 36415; 80053; 85025; 86850; 86900; 99283